=== PATIENT | female | born 1990 | race African-American/Black ===

== ENCOUNTER 2017-06-30 18:38 | Emergency (ER) | payer OTHER ==
[~2017-06-30 18:38] MED LIST: METO50TA PO
[2017-06-30 19:07] VITALS: BP 166/201; PULSE 68; RESP 16; TEMP 98.4; O2SAT 100
[2017-06-30 19:52] VITALS: BP 168/92
[2017-06-30] MEDS ORDERED: IBUP1TAB7 PO (20:42)
--- NOTE | 2017-06-30 20:44 | PD ---
HPI Chief Complaint: Musculoskeletal Complaint Time Seen by Provider: 19:44 Travel History International Travel<30 days: No Contact w/Intl Traveler<30days: No Traveled to known affect area: No History of Present Illness HPI 26-year-old female presents to the emergency department with complaint of bilateral breast pain that started today. Denies nipple discharge, breast swelling, change in skin appearance or appearance of bilateral breasts. Denies fever, vomiting. Last menstrual period May 06. Has IUD and says her periods are irregular. Denies risk of being . Has not taken any medication or tried any treatments to alleviate her symptoms. Rates pain 7/10. Pain is all over to bilateral breasts. Describes it as a burning sensation. Better with hot compresses. Worse with cold, movement and palpation of the breast. Primary CARE providers Dr. Aponte. Allergies to clindamycin. History of pacemaker and prolonged QT syndrome. Has no other medical complaints. No other modifying factors or associated signs and symptoms. PFSH Past Medical History Cardiovascular Problems: Yes (prolonged QT syndrome) Headaches: Yes ?: Not LMP: 05/06/17 : 1 Para: 0 Miscarriage: 1 Past Surgical History AICD: Yes (ki work) Section: Yes Tonsillectomy: Yes Social History Alcohol Use: Yes (SOCIALLY) Tobacco Use: No Substance Use: No Allergies-Medications (Allergen,Severity, Reaction): Coded Allergies: No Known Allergies (Unverified , 04/30/15) Reported Meds & Prescriptions Reported Meds & Active Scripts Active Ibuprofen 800 Mg Tab 800 Mg PO Q6HR PRN Reported Metoprolol Tartrate 50 mg (Metoprolol Tartrate) 50 Mg Tab 50 Mg PO BID Review of Systems Except as stated in HPI: all other systems reviewed are Neg Physical Exam Narrative GENERAL: Well-nourished, well-developed black female patient, in no acute distress; afebrile, nontoxic-appearing SKIN: Warm and dry. HEAD: Atraumatic. Normocephalic. EYES: Pupils equal and round. No scleral icterus. No injection or drainage. ENT: Mucosa pink and moist. Airway patent. NECK: Trachea midline. BREAST: Bilateral breasts are with tenderness on palpation all over; no nipple discharge; no skin dimpling; without erythema, edema; no palpable lumps or masses on palpation. No axillary lymphadenopathy bilaterally. CARDIOVASCULAR: Regular rate. RESPIRATORY: No accessory muscle use. GASTROINTESTINAL: Rounded. MUSCULOSKELETAL: No obvious deformities. No clubbing. No cyanosis. No edema. NEUROLOGICAL: Awake and alert. Oriented 3. No obvious cranial nerve deficits. Motor grossly within normal limits. Normal speech. PSYCHIATRIC: Appropriate mood and affect; insight and judgment normal. Data Data Last Documented VS Vital Signs Date Time Temp Pulse Resp B/P (MAP) Pulse Ox O2 Delivery O2 Flow Rate FiO2 06/30/17 19:52 168/92 (117) 06/30/17 19:07 98.4 68 16 100 Orders Orders Ed Urine Pregnancytest Poc (06/30/17 20:17) Ed Discharge Order (06/30/17 20:44) Ibuprofen (Motrin) (06/30/17 20:45) [facility] Medical Decision Making Medical Screen Exam Complete: Yes Emergency Medical Condition: Yes Medical Record Reviewed: Yes Differential Diagnosis Breast tenderness, painful breast, , premenses Narrative Course 26-year-old female with pain of both breasts. Physical exam is unremarkable. There are no palpable lumps, erythema, edema, nipple drainage, skin dimpling, axillary lymphadenopathy on exam. Patient is afebrile and nontoxic-appearing. She denies fever, vomiting. UPT is negative. Last menstrual period May 06. Patient states irregular periods. Ibuprofen administered in the ER. Instructed patient to follow-up with boring machine operator. Instructed patient to follow up with primary care provider. Patient verbalizes understanding and agreement with treatment plan. Patient is medically cleared and stable for discharge. Discussed reasons to return to the emergency department. Patient agrees with treatment plan. The patients vital signs are stable and the patient is stable for outpatient follow-up and treatment. Patient discharged home, stable and in no acute distress. Diagnosis Primary Impression: Pain of both breasts Referrals: Superintendent [employer] Primary Care Physician Patient Instructions: General Instructions Additional Instructions: Ibuprofen or Tylenol as directed and as needed for pain Warm and/or cold compresses to bilateral breasts to decrease pain Wear supportive bra to decrease pain Avoid aggravating activity Follow-up with primary care provider Follow-up with boring machine operator Return to the emergency department immediately with worsening of symptoms Med/Other Pt SpecificInfo: Prescription(s) given Scripts Ibuprofen (Ibuprofen) 800 Mg Tab 800 MG PO Q6HR Y for PAIN, #30 TAB 0 Refills Prov: Nadiya Bailey 06/30/17 Disposition: 01 DISCHARGE HOME Condition: Stable Nadiya Bailey Jun 30, 2017 20:44
[2017-06-30] MEDS ORDERED: IBUPROFEN 800 MG TAB PO ONE (20:45)
== END 2017-06-30 20:59 | disposition home or self-care (01) ==
LOC: NEPK 18:38
DX: N64.4 Mastodynia (principal); I45.81 Long QT syndrome; Z95.0 Presence of cardiac pacemaker
CPT/HCPCS: 84703; 99283

== ENCOUNTER 2017-07-10 12:50 | Observation (INO) | payer OTHER ==
[~2017-07-10] VITALS: Ht 157.5 cm; Wt 81.8 kg
[~2017-07-10 12:50] MED LIST changes: +IBUP1TAB7 PO
[2017-07-10 13:13] VITALS: BP 152/103; PULSE 83; RESP 16; TEMP 98.1; O2SAT 100
[2017-07-10 13:43] VITALS: BP 144/84; PULSE 78; RESP 18; TEMP 98.3; O2SAT 99
--- NOTE | 2017-07-10 14:08 | PD ---
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 Batres. Pt said her AICD fired yesterday and she went to see Dr. Batres and was interrogated and said her heart rate was in the 200s and that they may have to change her medication but they did not. Pt was told to come to the ED if it occurs again. Said AICD fired around 10:40am today. Pt feels a little lightheaded. Denies any fever, chest pain, sob, n/v, abdominal pain, focal weakness or numbness. PFSH Past Medical History Cardiovascular Problems: Yes Diminished Hearing: No Headaches: Yes Immunizations Current: Yes Tetanus Vaccination: Unknown Influenza Vaccination: No ?: Not : 2 Para: 1 Miscarriage: 1 Past Surgical History AICD: Yes ([employer]) Section: Yes Tonsillectomy: Yes Other Surgery: Yes (AICD Placement) Social History Alcohol Use: Yes (SOCIALLY) Tobacco Use: No Substance Use: No Allergies-Medications (Allergen,Severity, Reaction): Coded Allergies: clindamycin (Verified Allergy, Unknown, 07/10/17) Reported Meds & Prescriptions Reported Meds & Active Scripts Active Ibuprofen 800 Mg Tab 800 Mg PO Q6HR PRN Review of Systems Except as stated in HPI: all other systems reviewed are Neg Physical Exam Narrative GENERAL: 26yo F not in distress. SKIN: Focused skin assessment warm/dry. HEAD: Atraumatic. Normocephalic. EYES: Pupils equal and round. No scleral icterus. No injection or drainage. ENT: No nasal bleeding or discharge. Mucous membranes pink and moist. NECK: Trachea midline. No JVD. CARDIOVASCULAR: Regular rate and rhythm. No murmur appreciated. RESPIRATORY: No accessory muscle use. Clear to auscultation. Breath sounds equal bilaterally. GASTROINTESTINAL: Abdomen soft, non-tender, nondistended. MUSCULOSKELETAL: No obvious deformities. No clubbing. No cyanosis. No edema. NEUROLOGICAL: Awake and alert. No obvious cranial nerve deficits. Motor grossly within normal limits. Normal speech. PSYCHIATRIC: Appropriate mood and affect; insight and judgment normal. Data Data Last Documented VS Vital Signs Date Time Temp Pulse Resp B/P (MAP) Pulse Ox O2 Delivery O2 Flow Rate FiO2 07/10/17 13:43 98.3 78 18 144/84 (104) 99 Room Air Orders Orders Complete Blood Count With Diff (07/10/17 14:17) Basic Metabolic Panel (Bmp) (07/10/17 14:17) Magnesium (Mg) (07/10/17 14:17) Electrocardiogram (07/10/17 14:01) Admit Order (Ed Use Only) (07/10/17 18:22) Consult Cardiology (07/10/17 ) Labs Laboratory Tests Test 07/10/17 13:35 White Blood Count 7.8 TH/MM3 Red Blood Count 4.72 MIL/MM3 Hemoglobin 14.5 GM/DL Hematocrit 42.2 % Mean Corpuscular Volume 89.2 FL Mean Corpuscular Hemoglobin 30.7 PG Mean Corpuscular Hemoglobin Concent 34.4 % Red Cell Distribution Width 12.5 % Platelet Count 296 TH/MM3 Mean Platelet Volume 8.5 FL Neutrophils (%) (Auto) 61.3 % Lymphocytes (%) (Auto) 28.5 % Monocytes (%) (Auto) 7.7 % Eosinophils (%) (Auto) 1.7 % Basophils (%) (Auto) 0.8 % Neutrophils # (Auto) 4.8 TH/MM3 Lymphocytes # (Auto) 2.2 TH/MM3 Monocytes # (Auto) 0.6 TH/MM3 Eosinophils # (Auto) 0.1 TH/MM3 Basophils # (Auto) 0.1 TH/MM3 CBC Comment DIFF FINAL Differential Comment Blood Urea Nitrogen 7 MG/DL Creatinine 0.82 MG/DL Random Glucose 85 MG/DL Calcium Level 9.0 MG/DL Magnesium Level 2.2 MG/DL Sodium Level 144 MEQ/L Potassium Level 3.9 MEQ/L Chloride Level 109 MEQ/L Carbon Dioxide Level 30.5 MEQ/L Anion Gap 5 MEQ/L Estimat Glomerular Filtration Rate 104 ML/MIN [facility] Medical Decision Making Medical Screen Exam Complete: Yes Emergency Medical Condition: Yes Interpretation(s) EKG: NSR 71bpm. Normal axis. No ST segment elevation or depression. QTc 362ms. Differential Diagnosis Vtach vs. electrolyte abnormality vs. dehydration Narrative Course 26yo F was sent here by Dr. Batres for evaluation because her AICD fired again today. Pt said it fired at 10:40am yesterday and then again at 11:15am. Pt said she was evaluated by Dr. Batres's nurse practitioner in the office yesterday after the first firing and had [employer] interrogate the AICD and it was fired appropriately. This information was given to Dr. Batres and pt was instructed to come to the ED when she called and said her AICD fired again today. Pt denies any chest pain, sob currently. [employer] was called again and AICD was interrogated and they saw that there was one new episode of VF at 11:14am and a shock was delivered and it was appropriate. This information was texted to Dr. Batres. We have been trying to contact Dr. Batres but unable to reach him. Labs reviewed, no leukocytosis. H/H normal. BMP unremarkable. Magnesium normal. Since pt had 2 episodes of VF/Vtach in 2 days, will observe pt on telemetry and consult Dr. Batres. Pt denies any chest pain or sob but does fell lightheaded. Diagnosis Primary Impression: AICD discharge Admitting Information Admitting Physician Requests: Observation Scripts Sotalol (Sorine) 80 Mg Tab 120 MG PO BID for Regulate Heart Beat for 30 Days, #90 TAB Prov: Alyssa Shrestha PA-C 07/11/17 Mitzi Jasmine DO Jul 10, 2017 14:08
[2017-07-10 14:26] LABS: AUTOMATED NEUTROPHIL # 4.8 TH/MM3 (1.8-7.7); BASOPHIL # 0.1 TH/MM3 (0-0.2); BASOPHIL % 0.8 % (0.0-2.0); EOSINOPHIL # 0.1 TH/MM3 (0-0.4); EOSINOPHIL % 1.7 % (0.0-4.0); HEMATOCRIT 42.2 % (35.0-46.0); HEMOGLOBIN 14.5 GM/DL (11.6-15.3); LYMPH % 28.5 % (9.0-44.0); LYMPHOCYTE # 2.2 TH/MM3 (1.0-4.8); MEAN CELL VOLUME 89.2 FL (80.0-100.0); MEAN CORPUSCULAR HEMOGLOBIN 30.7 PG (27.0-34.0); MEAN CORPUSCULAR HGB CONC 34.4 % (32.0-36.0); MEAN PLATELET VOLUME 8.5 FL (7.0-11.0); MONO % 7.7 % (0.0-8.0); MONOCYTE # 0.6 TH/MM3 (0-0.9); NEUT % 61.3 % (16.0-70.0); PLATELET COUNT 296 TH/MM3 (150-450); RED BLOOD COUNT 4.72 MIL/MM3 (4.00-5.30); RED CELL DISTRIBUTION WIDTH 12.5 % (11.6-17.2); WHITE BLOOD COUNT 7.8 TH/MM3 (4.0-11.0)
[2017-07-10 14:44] LABS: BICARBONATE 30.5 MEQ/L (21.0-32.0); CREATININE 0.82 MG/DL (0.50-1.00); MAGNESIUM 2.2 MG/DL (1.5-2.5)
[2017-07-10] MEDS ORDERED: METO50TA PO (14:57)
[2017-07-10] MEDS ORDERED: LACTULOSE SYRUP 20 GM/30 ML CUP PO PRN (18:45)
[2017-07-10] MEDS ORDERED: MAGNESIUM HYDROXIDE SUSP 30 ML CUP PO PRN (18:45)
[2017-07-10] MEDS ORDERED: SENNOSIDES 8.6 MG TAB PO PRN (18:45)
[2017-07-10] MEDS ORDERED: NALOXONE HCL 0.4 MG/ML AMP IV PUSH PRN (18:45)
[2017-07-10] MEDS ORDERED: SODIUM CHLORIDE 0.9% FLUSH 10 ML FLUSH IV FLUSH PRN (18:45)
[2017-07-10] MEDS ORDERED: ONDANSETRON HCL 4 MG/2 ML VIAL IVP PRN (18:45)
[2017-07-10] MEDS ORDERED: BISACODYL 10 MG SUPP RECTAL PRN (18:45)
[2017-07-10 19:20] VITALS: BP 152/86; PULSE 76; RESP 14; O2SAT 99
--- NOTE | 2017-07-10 20:02 | HHI.HP ---
[facility] Gareth Ap[facility] MD Admission Diagnosis AICD firing Diagnoses: Travel History International Travel<30 Days: No Contact w/Intl Traveler <30 Da: No Traveled to Known Affected Are: No Past Family Social History Allergies: Coded Allergies: clindamycin (Verified Allergy, Unknown, 07/10/17) Physical Exam Vital Signs Vital Signs Date Time Temp Pulse Resp B/P (MAP) Pulse Ox O2 Delivery O2 Flow Rate FiO2 07/10/17 20:00 07/10/17 19:20 76 14 152/86 (108) 99 Room Air 07/10/17 19:18 76 14 99 Room Air 07/10/17 13:43 98.3 78 18 144/84 (104) 99 Room Air 07/10/17 13:43 20 99 Room Air 07/10/17 13:13 98.1 83 16 152/103 (119) 100 Physical Exam GENERAL: This is a well-nourished, well-developed patient, in no apparent distress. SKIN: No rashes, ecchymoses or lesions. Cool and dry. HEAD: Atraumatic. Normocephalic. No temporal or scalp tenderness. EYES: Pupils equal round and reactive. Extraocular motions intact. No scleral icterus. No injection or drainage. ENT: Nose without bleeding, purulent drainage or septal hematoma. Throat without erythema, tonsillar hypertrophy or exudate. Uvula midline. Airway patent. NECK: Trachea midline. No JVD or lymphadenopathy. Supple, nontender, no meningeal signs. CARDIOVASCULAR: Regular rate and rhythm without murmurs, gallops, or rubs. RESPIRATORY: Clear to auscultation. Breath sounds equal bilaterally. No wheezes , rales, or rhonchi. GASTROINTESTINAL: Abdomen soft, non-tender, nondistended. No hepato-splenomegaly , or palpable masses. No guarding. MUSCULOSKELETAL: Extremities without clubbing, cyanosis, or edema. No joint tenderness, effusion, or edema noted. No calf tenderness. Negative Homans sign bilaterally. NEUROLOGICAL: Awake and alert. Cranial nerves II through XII intact. Motor and sensory grossly within normal limits. Five out of 5 muscle strength in all muscle groups. Normal speech. Laboratory Laboratory Tests Test 07/10/17 13:35 White Blood Count 7.8 Red Blood Count 4.72 Hemoglobin 14.5 Hematocrit 42.2 Mean Corpuscular Volume 89.2 Mean Corpuscular Hemoglobin 30.7 Mean Corpuscular Hemoglobin Concent 34.4 Red Cell Distribution Width 12.5 Platelet Count 296 Mean Platelet Volume 8.5 Neutrophils (%) (Auto) 61.3 Lymphocytes (%) (Auto) 28.5 Monocytes (%) (Auto) 7.7 Eosinophils (%) (Auto) 1.7 Basophils (%) (Auto) 0.8 Neutrophils # (Auto) 4.8 Lymphocytes # (Auto) 2.2 Monocytes # (Auto) 0.6 Eosinophils # (Auto) 0.1 Basophils # (Auto) 0.1 CBC Comment DIFF FINAL Differential Comment Blood Urea Nitrogen 7 Creatinine 0.82 Random Glucose 85 Calcium Level 9.0 Magnesium Level 2.2 Sodium Level 144 Potassium Level 3.9 Chloride Level 109 Carbon Dioxide Level 30.5 Anion Gap 5 Estimat Glomerular Filtration Rate 104 Result Diagram: 07/10/17 1335 07/10/17 1335 Caprini VTE Risk Assessment Caprini Risk Assessment Model Point Value = 1 Point Value = 2 Point Value = 3 Point Value = 5 Age 41-60 Minor surgery BMI > 25 kg/m2 Swollen legs Varicose veins or History of unexplained or recurrent spontaneous Oral contraceptives or hormone replacement Sepsis (< 1 month) Serious lung disease, including pneumonia (< 1 month) Abnormal pulmonary function Acute myocardial infarction Congestive heart failure (< 1 month) History of inflammatory bowel disease Medical patient at bed rest Age 61-74 Arthroscopic surgery Major open surgery (> 45 min) Laparoscopic surgery (> 45 min) Malignancy Confined to bed (> 72 hours) Immobilizing plaster cast Central venous access Age >= 75 History of VTE Family history of VTE Factor V Leiden Prothrombin [id number] Lupus anticoagulant Anticardiolipin antibodies Elevated serum homocysteine Heparin-induced thrombocytopenia Other congenital or acquired thrombophilia Stroke (< 1 month) Elective arthroplasty Hip, pelvis, or leg fracture Acute spinal cord injury (< 1 month) Prophylaxis Regimen Total Risk Factor Score Risk Level Prophylaxis Regimen 0-1 Low Early ambulation 2 Moderate Order ONE of the following: *Sequential Compression Device (SCD) *Heparin 5000 units SQ BID 3-4 Higher Order ONE of the following medications: *Heparin 5000 units SQ TID *Enoxaparin/Lovenox 40 mg SQ daily (WT < 150 kg, CrCl > 30 mL/min) *Enoxaparin/Lovenox 30 mg SQ daily (WT < 150 kg, CrCl > 10-29 mL/min) *Enoxaparin/Lovenox 30 mg SQ BID (WT < 150 kg, CrCl > 30 mL/min) AND/OR *Sequential Compression Device (SCD) 5 or more Highest Order ONE of the following medications: *Heparin 5000 units SQ TID (Preferred with Epidurals) *Enoxaparin/Lovenox 40 mg SQ daily (WT < 150 kg, CrCl > 30 mL/min) *Enoxaparin/Lovenox 30 mg SQ daily (WT < 150 kg, CrCl > 10-29 mL/min) *Enoxaparin/Lovenox 30 mg SQ BID (WT < 150 kg, CrCl > 30 mL/min) AND *Sequential Compression Device (SCD) Cristel Sharma MD Jul 10, 2017 20:02
[2017-07-10] MEDS: DOCUSATE SODIUM 50 MG/SENNA 8.6 MG TAB PO SCH (21:00)
[2017-07-10] MEDS: METOPROLOL TARTRATE 50 MG TAB PO SCH (23:00)
--- NOTE | 2017-07-10 23:35 | HHI.HP ---
[facility] Ap[facility] MD Admission Diagnosis AICD firing Diagnoses: (1) AICD discharge Chief Complaint: AICD fired yesterday and this morning Travel History International Travel<30 Days: No Contact w/Intl Traveler <30 Da: No Traveled to Known Affected Are: No History of Present Illness Ms. Sanford is a very pleasant 27-year-old female with a history of prolonged QT syndrome status post AICD placement who presented to the emergency room after her AICD fired twice. The patient was admitted to the hospitalist service for observation given two episodes of ventricular arrhythmia in two days to include close monitoring and consultation with Dr. Stein. The patient's AICD fired 07/09/2017 and the patient was seen by her provider network mgr Dr. Stein. The AICD was interrogated and found to be working appropriately. She was instructed to come to the emergency room after the AICD fired again at about 10:40 AM on 07/10/2017. The patient states that she was asleep during both discharges and woke up feeling palpitations and felt the discharge of the AICD. She denies any chest pain shortness of breath. She indicates she was feeling lightheaded in the emergency room but told me that those symptoms spontaneously resolved after she ate. She denies any recent illness, fevers, chills, nausea, vomiting, or diarrhea. According to the ER documentation, the AICD was again interrogated and V. fib was noted at 11:14 AM with appropriate shock delivered. 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 Past Surgical History AICD placement February 26, 2015 Partial tonsillectomy . Reported Medications Reported Metoprolol Tartrate 50 Mg Tab 50 Mg PO BID . Allergies: Coded Allergies: clindamycin (Verified Allergy, Unknown, 07/10/17) Family History Mother and maternal grandfather with prolonged QT syndrome . Social History Tobacco: Denies Alcohol: Rare social Illicit Drugs: Denies . Physical Exam Vital Signs Vital Signs Date Time Temp Pulse Resp B/P (MAP) Pulse Ox O2 Delivery O2 Flow Rate FiO2 07/10/17 20:00 07/10/17 19:20 76 14 152/86 (108) 99 Room Air 07/10/17 19:18 76 14 99 Room Air 07/10/17 13:43 98.3 78 18 144/84 (104) 99 Room Air 07/10/17 13:43 20 99 Room Air 07/10/17 13:13 98.1 83 16 152/103 (119) 100 Physical Exam CONSTITUTIONAL: This is an overweight young female patient, in no apparent distress. Well groomed. INTEGUMENTARY: No rashes, ecchymoses or lesions. Cool and dry. HEAD: Atraumatic. Normocephalic. EYES: No scleral icterus. No injection or drainage. ENT: Nose without bleeding, purulent drainage. NECK: Trachea midline. No JVD. CARDIOVASCULAR: Regular rate and rhythm without murmurs, gallops, or rubs. RESPIRATORY: Clear to auscultation. Breath sounds equal bilaterally. No wheezes , rales, or rhonchi. GASTROINTESTINAL: Abdomen soft, non-tender, nondistended. No guarding. MUSCULOSKELETAL: Extremities without clubbing, cyanosis, or edema. No calf tenderness. NEUROLOGICAL: Awake and alert. Motor and sensory grossly within normal limits. Normal speech. . Laboratory Laboratory Tests Test 07/10/17 13:35 White Blood Count 7.8 Red Blood Count 4.72 Hemoglobin 14.5 Hematocrit 42.2 Mean Corpuscular Volume 89.2 Mean Corpuscular Hemoglobin 30.7 Mean Corpuscular Hemoglobin Concent 34.4 Red Cell Distribution Width 12.5 Platelet Count 296 Mean Platelet Volume 8.5 Neutrophils (%) (Auto) 61.3 Lymphocytes (%) (Auto) 28.5 Monocytes (%) (Auto) 7.7 Eosinophils (%) (Auto) 1.7 Basophils (%) (Auto) 0.8 Neutrophils # (Auto) 4.8 Lymphocytes # (Auto) 2.2 Monocytes # (Auto) 0.6 Eosinophils # (Auto) 0.1 Basophils # (Auto) 0.1 CBC Comment DIFF FINAL Differential Comment Blood Urea Nitrogen 7 Creatinine 0.82 Random Glucose 85 Calcium Level 9.0 Magnesium Level 2.2 Sodium Level 144 Potassium Level 3.9 Chloride Level 109 Carbon Dioxide Level 30.5 Anion Gap 5 Estimat Glomerular Filtration Rate 104 Result Diagram: 07/10/17 1335 07/10/17 1335 Caprini VTE Risk Assessment Caprini VTE Risk Assessment: No/Low Risk (score <= 1) Caprini Risk Assessment Model Point Value = 1 Point Value = 2 Point Value = 3 Point Value = 5 Age 41-60 Minor surgery BMI > 25 kg/m2 Swollen legs Varicose veins or History of unexplained or recurrent spontaneous Oral contraceptives or hormone replacement Sepsis (< 1 month) Serious lung disease, including pneumonia (< 1 month) Abnormal pulmonary function Acute myocardial infarction Congestive heart failure (< 1 month) History of inflammatory bowel disease Medical patient at bed rest Age 61-74 Arthroscopic surgery Major open surgery (> 45 min) Laparoscopic surgery (> 45 min) Malignancy Confined to bed (> 72 hours) Immobilizing plaster cast Central venous access Age >= 75 History of VTE Family history of VTE Factor V Leiden Prothrombin [id number] Lupus anticoagulant Anticardiolipin antibodies Elevated serum homocysteine Heparin-induced thrombocytopenia Other congenital or acquired thrombophilia Stroke (< 1 month) Elective arthroplasty Hip, pelvis, or leg fracture Acute spinal cord injury (< 1 month) Prophylaxis Regimen Total Risk Factor Score Risk Level Prophylaxis Regimen 0-1 Low Early ambulation 2 Moderate Order ONE of the following: *Sequential Compression Device (SCD) *Heparin 5000 units SQ BID 3-4 Higher Order ONE of the following medications: *Heparin 5000 units SQ TID *Enoxaparin/Lovenox 40 mg SQ daily (WT < 150 kg, CrCl > 30 mL/min) *Enoxaparin/Lovenox 30 mg SQ daily (WT < 150 kg, CrCl > 10-29 mL/min) *Enoxaparin/Lovenox 30 mg SQ BID (WT < 150 kg, CrCl > 30 mL/min) AND/OR *Sequential Compression Device (SCD) 5 or more Highest Order ONE of the following medications: *Heparin 5000 units SQ TID (Preferred with Epidurals) *Enoxaparin/Lovenox 40 mg SQ daily (WT < 150 kg, CrCl > 30 mL/min) *Enoxaparin/Lovenox 30 mg SQ daily (WT < 150 kg, CrCl > 10-29 mL/min) *Enoxaparin/Lovenox 30 mg SQ BID (WT < 150 kg, CrCl > 30 mL/min) AND *Sequential Compression Device (SCD) Assessment and Plan Assessment and Plan Ms. Sanford is a very pleasant 27-year-old female with a history of prolonged QT syndrome status post AICD placement who presented to the emergency room after her AICD fired twice. The patient was admitted to the hospitalist service for observation given two episodes of ventricular arrhythmia in two days to include close monitoring and consultation with Dr. Stein. AICD discharge x 2 Prolonged QT syndrome -Consult provider network mgr, Dr. Stein - appreciate assistance -Continue home Metoprolol -Continuous cardiac telemetry to monitor for further arrhythmia -Monitor vital signs and I&Os DVT prophylaxis -Early ambulation . Discussed Condition With Patient, RN, and Dr. Sharma . Chandrika Bang Jul 10, 2017 23:35
[2017-07-10 23:37] VITALS: BP 138/76; PULSE 65; RESP 18; TEMP 98.1; O2SAT 96
[2017-07-11] MEDS: SODIUM CHLORIDE 0.9% FLUSH 10 ML FLUSH IV FLUSH SCH ×2 (01:23→08:31)
[2017-07-11] MEDS ORDERED: PROCHLORPERAZINE INJ 10 MG/2 ML VIAL IV PUSH PRN (01:30)
[2017-07-11 04:56] VITALS: BP 126/75; PULSE 81; RESP 20; TEMP 97.4; O2SAT 99
[2017-07-11] MEDS ORDERED: CALCIUM CARBONATE 500 MG CHEWABLE TAB CHEW PRN (05:00)
[2017-07-11 07:37] VITALS: BP 136/80; PULSE 84; RESP 16; TEMP 97.4; O2SAT 96
[2017-07-11 08:05] VITALS: PULSE 60
[2017-07-11] MEDS: METOPROLOL TARTRATE 50 MG TAB PO SCH (08:31)
[2017-07-11] MEDS: DOCUSATE SODIUM 50 MG/SENNA 8.6 MG TAB PO SCH (08:31)
--- NOTE | 2017-07-11 09:52 | HHI.PR ---
Subjective Remarks in no acute distress. resting comfortably. no new complaints over night. Objective Vitals Vital Signs Date Time Temp Pulse Resp B/P (MAP) Pulse Ox O2 Delivery O2 Flow Rate FiO2 07/11/17 07:37 97.4 84 16 136/80 (98) 96 07/11/17 04:56 97.4 81 20 126/75 (92) 99 07/10/17 23:37 98.1 65 18 138/76 (96) 96 07/10/17 20:00 07/10/17 19:20 76 14 152/86 (108) 99 Room Air 07/10/17 19:18 76 14 99 Room Air 07/10/17 13:43 98.3 78 18 144/84 (104) 99 Room Air 07/10/17 13:43 20 99 Room Air 07/10/17 13:13 98.1 83 16 152/103 (119) 100 Result Diagram: 07/10/17 1335 07/10/17 1335 Objective Remarks GENERAL: This is a well-nourished, well-developed patient, in no apparent distress. CARDIOVASCULAR: Regular rate and regular rhythm without murmurs, gallops, or rubs. RESPIRATORY: Clear to auscultation. Breath sounds equal bilaterally. No wheezes , rales, or rhonchi. GASTROINTESTINAL: Abdomen soft, non-tender, nondistended. Normal, active bowel sounds MUSCULOSKELETAL: Extremities without clubbing, cyanosis, or edema. NEURO: Alert & Oriented x4 to person, place, time, situation. Moves all ext x4 Medications and IVs Inpatient Medications Bisacodyl (Dulcolax Supp) 10 mg DAILY PRN RECTAL SEVERE CONSITIPATION; Start at 18:45 Calcium Carbonate (Tums Chew) 500 mg Q2H PRN CHEW indigestion Last administered on 07/11/17at 08:32; Start 07/11/17 at 05:00 Lactulose (Lactulose Liq) 30 ml DAILY PRN PO SEVERE CONSTIPATION; Start at 18:45 Magnesium Hydroxide (Milk Of Magnesia Liq) 30 ml Q12H PRN PO Mild constipation ; Start 07/10/17 at 18:45 Metoprolol Tartrate (Lopressor) 50 mg BID PO Last administered on 07/11/17at 08: 31; Start 07/10/17 at 23:00 Naloxone HCl (Narcan Inj) 0.4 mg UNSCH PRN IV PUSH SEE LABEL COMMENTS; Start at 18:45 Ondansetron HCl (Zofran Inj) 4 mg Q6H PRN IVP NAUSEA OR VOMITING; Start at 18:45; Stop 07/11/17 at 01:29; Status DC Prochlorperazine Edisylate (Compazine Inj) 5 mg Q3H PRN IV PUSH nausea/vomiting ; Start 07/11/17 at 01:30 Senna/Docusate Sodium (Mirela-Colace) 1 tab BID PO ; Start 07/10/17 at 21:00 Sennosides (Senokot) 17.2 mg Q12H PRN PO Moderate constipation; Start 07/10/17 at 18:45 Sodium Chloride (NS Flush) 2 ml BID IV FLUSH Last administered on 07/11/17at 08: 31; Start 07/10/17 at 21:00 A/P Problem List: (1) AICD discharge ICD Code: Z45.02 - Encounter for adjustment and management of automatic implantable cardiac defibrillator Assessment and Plan AICD discharge x 2 Prolonged QT syndrome -Consulted facilities project manager, Dr. Stein - appreciate assistance -Continue home Metoprolol -Continuous cardiac telemetry to monitor for further arrhythmia -Monitor vital signs and I&Os DVT prophylaxis -Early ambulation Discharge Planning awaiting cardiology evaluation. Tony Murrell MD Jul 11, 2017 09:52
[2017-07-11 12:00] VITALS: BP 136/76; PULSE 60; RESP 16; TEMP 98; O2SAT 99
--- NOTE | 2017-07-11 14:26 | HHI.DCPOC ---
Discharge Care Plan Diagnosis: (1) AICD discharge Goals to Promote Your Health * To prevent worsening of your condition and complications * To maintain your health at the optimal level Directions to Meet Your Goals Take your medications as prescribed Follow your dietary instruction Follow activity as directed Keep your appointments as scheduled Take your immunizations and boosters as scheduled If your symptoms worsen call your PCP, if no PCP go to Urgent Care Center or Emergency Room Smoking is Dangerous to Your Health. Avoid second hand smoke Call the 24-hour hour crisis hotline for domestic abuse at Alyssa Shrestha PA-C Jul 11, 2017 14:26
[2017-07-11 15:15] VITALS: PULSE 71
[2017-07-11] MEDS ORDERED: IBUPROFEN 600 MG TAB PO PRN (15:45)
[2017-07-11] MEDS ORDERED: ACETAMINOPHEN 325 MG TAB PO PRN (15:45)
[2017-07-11] MEDS ORDERED: PILL SPLITTER OTHER PRN (16:00)
--- NOTE | 2017-07-11 16:01 | MB ---
cc: Chayo Stein MD DATE: 07/11/2017 REASON FOR CONSULTATION: Ventricular tachycardia defibrillatory shock of ventricular fibrillation. HISTORY OF PRESENT ILLNESS: Ms. Sanford is a 27-year-old female with history of previous defibrillatory shock, cardiomyopathy. She was doing well since last June. She has a defibrillatory shock. This is a third shock in around a year. She was admitted to the emergency room. She has a long QT syndrome. She is currently on a beta kadie. The chart was reviewed. The patient was evaluated. ALLERGIES: CLINDAMYCIN. SOCIAL HISTORY: Negative for smoking and drinking. FAMILY HISTORY: Noncontributory to her current medical condition. MEDICATIONS: Currently she is on metoprolol 50 mg twice a day and magnesium. REVIEW OF SYSTEMS: Currently, she referred no chest pain, no chest discomfort, no fever, no vomiting. PHYSICAL EXAMINATION: GENERAL: Alert, fully oriented. VITAL SIGNS: Blood pressure 132/76, pulse 71, respiratory rate 18. LUNGS: Good air entry bilaterally. CARDIOVASCULAR: S1, S2. No gallop. No murmur. ABDOMEN: Soft. Normal bowel sounds. EXTREMITIES: No edema. DIAGNOSTIC STUDIES: Electrocardiogram shows sinus rhythm, diffuse ST changes. LABORATORY STUDIES: Hemoglobin 14.5, white blood cell 7.8. Potassium 3.9, creatinine 0.82, magnesium is 2.2. ASSESSMENT AND RECOMMENDATIONS: Ms. Sanford had a noted episode of ventricular fibrillation and defibrillatory shock was appropriate. This is not ventricular tachycardia. We cannot attain ablation. Also, there is no bradycardia induced torsades that happens some time in case of long QT syndrome. The heart rate was normal before the defibrillatory shock. She has continued to be in the 60s. There is no need to keep the atrial lead with very high by pacing support. I am going to review in detail the previous shocks. She is already on beta kadie. At this point, the best approach is just metoprolol add sotalol at 120 mg twice a day. I will see the patient in a week in my office. She can be discharged home. Case discussed with her extensively. As mentioned before, she will be followed as an outpatient. Chayo Stein MD HS/KD , 03:42 PM , 04:01 PM
[2017-07-11 16:05] VITALS: BP 120/65; PULSE 62; RESP 18; TEMP 98.2; O2SAT 98
[2017-07-11] MEDS ORDERED: SOTA80 PO (17:41)
--- NOTE | 2017-07-11 18:11 | EKG ---
Date Performed: 07/10/2017 Time Performed: 14:01:38 PTAGE: 26 years EKG: Sinus rhythm INCOMPLETE RIGHT BUNDLE BRANCH BLOCK NONSPECIFIC T-WAVE ABNORMALITY Compared to previous tracing, Ri ght axis deviation new from the prior tracing. Mildly prolonged QT interval, which appears old BORDER LINE ECG PREVIOUS TRACING : 04/30/2015 20.06 DOCTOR: Nikolay Sheppard Interpretating Date/Time 07/11/2017 18:11:10
[2017-07-11] MEDS ORDERED: SOTALOL HCL 80 MG TAB PO SCH (21:00)
== END 2017-07-11 20:11 | disposition home or self-care (01) ==
LOC: NEPE 12:50 → NEDA 18:24 → NEPHCDU 20:09
PROVIDERS: ADMIT Internal Medicine; ATTEND Internal Medicine
DX: I49.01 Ventricular fibrillation (principal); I42.9 Cardiomyopathy, unspecified; I45.10 Unspecified right bundle-branch block; Z95.810 Presence of automatic (implantable) cardiac defibrillator
CPT/HCPCS: 80048; 83735; 85025; 93005; 99285; G0378

== ENCOUNTER 2017-08-08 12:41 | Emergency (ER) | payer OTHER ==
[~2017-08-08 12:41] MED LIST changes: -METO50TA PO; +SOTA80 PO
[2017-08-08 12:48] VITALS: BP 142/77; PULSE 79; RESP 16; TEMP 98.6; O2SAT 99
--- NOTE | 2017-08-08 14:20 | PD ---
HPI . Neck and back pain Chief Complaint: Back/ Neck Pain or Injury Time Seen by Provider: 13:09 Travel History International Travel<30 days: No Contact w/Intl Traveler<30days: No Traveled to known affect area: No History of Present Illness HPI Patient presents with chief complaint of neck and low back pain. Onset was a year ago. There is nothing new and different that brought her to the emergency department today. History Past Medical Histgory Hx Cancer: No Hx Chemotherapy: No Hx Radiation Therapy: No Social History Alcohol Use: Yes (SOCIALLY) Tobacco Use: No Allergies-Medications (Allergen,Severity, Reaction): Coded Allergies: clindamycin (Verified Allergy, Unknown, 07/10/17) Reported Meds & Prescriptions Reported Meds & Active Scripts Active Sorine (Sotalol HCl) 80 Mg Tab 120 Mg PO BID 30 Days Ibuprofen 800 Mg Tab 800 Mg PO Q6HR PRN Review of Systems Except as stated in HPI: all other systems reviewed are Neg Physical Exam Narrative GENERAL: Awake and alert and in no acute distress. SKIN: Warm and dry. HEAD: Normocephalic/atraumatic. EYES: Pupils are equal. Extraocular movements are intact. NECK: Normal range of motion. CARDIOVASCULAR: Regular rate and rhythm. RESPIRATORY: Nonlabored respirations. MUSCULOSKELETAL: Atraumatic. She moves and ambulates without difficulty. She reports diffuse tenderness to palpation of the musculature of her neck and back. NEUROLOGICAL: Nonfocal. PSYCHIATRIC: Appropriate mood and affect. Data Data Last Documented VS Vital Signs Date Time Temp Pulse Resp B/P (MAP) Pulse Ox O2 Delivery O2 Flow Rate FiO2 08/08/17 12:48 98.6 79 16 142/77 (98) 99 MDM Medical Screen Exam Complete: Yes Emergency Medical Condition: No Narrative Course A medical screening exam was performed: At the time of evaluation the presenting medical condition was determined not to be of an emergent nature. The patient was given the option of receiving additional care, but declined. Patient was given options for additional community resources from which to obtain care. The Patient Has Been advised to seek medical attention for their presenting complaint. The patient has been advised to return to the ER at any time if an emergent condition develops. Primary Impression: Encounter for medical screening examination Disposition: [facility]-ED USE ONLY Condition: Stable Vickie Barrera MD August 08, 2017 14:20
== END 2017-08-08 13:29 | disposition left against medical advice (07) ==
LOC: NEPD 12:41
DX: M54.5 Low back pain (principal); M54.2 Cervicalgia
CPT/HCPCS: 99281

== ENCOUNTER 2017-08-20 10:38 | Inpatient (IN) | payer OTHER ==
[~2017-08-20] VITALS: Ht 157.5 cm; Wt 82.5 kg
[2017-08-20 10:42] VITALS: BP 147/87; PULSE 86; RESP 16; TEMP 98.4; O2SAT 98
[2017-08-20 11:30] VITALS: BP 165/97; PULSE 106; RESP 19; O2SAT 99
--- NOTE | 2017-08-20 11:36 | RADRPT ---
EXAM DATE: 08/20/2017 11:32 AM EDT AGE/SEX: 27 years / Female INDICATIONS: Chest pain. Pacemaker discharged. CLINICAL DATA: This is the patient's initial encounter. Patient reports that signs and symptoms have been present for 1 day and indicates a pain score of 4/10. MEDICAL/SURGICAL HISTORY: . Cardiac disorder. Prolong QT syndrome. section. [place] r. COMPARISON: No prior [facility] exams available for comparison. FINDINGS: There is a transvenous pacer in good position. The heart is normal in size. The mediastinal contours are within normal limits. The lungs are clear. The visualized bony structures are grossly intact. CONCLUSION: Pacer in satisfactory position. No acute cardiopulmonary findings. Electronically signed by: Kristian Bhatt MD 08/20/2017 11:35 AM EDT
[2017-08-20 12:15] VITALS: PULSE 65; RESP 16; O2SAT 100
[2017-08-20 12:18] LABS: AUTOMATED NEUTROPHIL # 7.8 TH/MM3 (1.8-7.7); BASOPHIL % 0.3 % (0.0-2.0); EOSINOPHIL # 0.1 TH/MM3 (0-0.4); HEMATOCRIT 44.9 % (35.0-46.0); HEMOGLOBIN 15.4 GM/DL (11.6-15.3); LYMPH % 18.4 % (9.0-44.0); LYMPHOCYTE # 1.9 TH/MM3 (1.0-4.8); MEAN CELL VOLUME 88.9 FL (80.0-100.0); MEAN CORPUSCULAR HEMOGLOBIN 30.4 PG (27.0-34.0); MEAN CORPUSCULAR HGB CONC 34.2 % (32.0-36.0); MEAN PLATELET VOLUME 8.6 FL (7.0-11.0); MONO % 5.1 % (0.0-8.0); MONOCYTE # 0.5 TH/MM3 (0-0.9); NEUT % 75.2 % (16.0-70.0); PLATELET COUNT 275 TH/MM3 (150-450); RED BLOOD COUNT 5.05 MIL/MM3 (4.00-5.30); RED CELL DISTRIBUTION WIDTH 12.6 % (11.6-17.2); WHITE BLOOD COUNT 10.4 TH/MM3 (4.0-11.0)
--- NOTE | 2017-08-20 12:21 | PD ---
HPI Chief Complaint: Cardiac Complaint Time Seen by Provider: 12:00 Travel History International Travel<30 days: No Contact w/Intl Traveler<30days: No Traveled to known affect area: No History of Present Illness HPI This is a 27-year-old female with a history of prolonged QT syndrome with a AICD in place, who presents today after having her AICD fire this morning while sleeping. Patient states that she woke up the palpitations and shortly thereafter her AICD discharge. She states it happened recently about a week ago. At that time her packing clerk, Dr. Blair, recommended that they schedule an ablation. The ablation has not been completed as of yet. She states she tried to call her packing clerk's office however he was not available. She was instructed to come here for evaluation. Denies any fevers, chills. She denies any nausea vomiting diarrhea. There is nothing new going on at this time. She does state that she got slightly lightheaded while in the x-ray getting her chest x-ray performed. She is asymptomatic now at this time. PFSH Past Medical History Asthma: No Blood Disorders: No Heart Rhythm Problems: Yes (PROLONGED QT SYNDROME) Cancer: No Cardiovascular Problems: Yes High Cholesterol: No Chemotherapy: No Chest Pain: No Congestive Heart Failure: No COPD: No Diabetes: No Diminished Hearing: No Endocrine: No Genitourinary: No Headaches: Yes Immune Disorder: No Implanted Vascular Access Dvce: Yes Musculoskeletal: No Neurologic: No Psychiatric: No Reproductive: No Respiratory: No Immunizations Current: Yes Radiation Therapy: No Sleep Apnea: No Thyroid Disease: No : 2 Para: 1 Miscarriage: 1 Past Surgical History AICD: Yes ([employer]) Section: Yes Tonsillectomy: Yes Other Surgery: Yes (AICD PLACEMENT , ) Social History Alcohol Use: Yes (SOCIALLY) Tobacco Use: No Substance Use: No Allergies-Medications (Allergen,Severity, Reaction): Coded Allergies: clindamycin (Verified Allergy, Unknown, 08/20/17) Reported Meds & Prescriptions Reported Meds & Active Scripts Active Sorine (Sotalol HCl) 80 Mg Tab 120 Mg PO BID 30 Days Ibuprofen 800 Mg Tab 800 Mg PO Q6HR PRN Review of Systems Except as stated in HPI: all other systems reviewed are Neg General / Constitutional: No: Fever, Chills HENT: No: Headaches, Neck Pain Cardiovascular: Positive: Palpitations, No: Chest Pain or Discomfort, Irregular Rhythm (Earlier) Respiratory: No: Cough, Shortness of Breath Gastrointestinal: No: Nausea, Vomiting, Abdominal Pain Genitourinary: No: Frequency, Dysuria Musculoskeletal: No: Weakness, Pain Neurologic: Positive: Dizziness (Lightheaded when), No: Weakness, Headache ( in x-ray, none now.) Physical Exam Narrative GENERAL: Well-developed well-nourished female in no acute respiratory distress. SKIN: Focused skin assessment warm/dry. HEAD: Atraumatic. Normocephalic. EYES: Pupils equal and round. No scleral icterus. No injection or drainage. ENT: No nasal bleeding or discharge. Mucous membranes pink and moist. NECK: Trachea midline. Supple. CARDIOVASCULAR: Regular rate and rhythm. No murmur appreciated. RESPIRATORY: No accessory muscle use. Clear to auscultation. Breath sounds equal bilaterally. GASTROINTESTINAL: Abdomen soft, non-tender, nondistended. Hepatic and splenic margins not palpable. MUSCULOSKELETAL: No obvious deformities. No clubbing. No cyanosis. No edema. NEUROLOGICAL: Awake and alert. No obvious cranial nerve deficits. Motor grossly within normal limits. Normal speech. PSYCHIATRIC: Appropriate mood and affect; insight and judgment normal. Data Data Last Documented VS Vital Signs Date Time Temp Pulse Resp B/P (MAP) Pulse Ox O2 Delivery O2 Flow Rate FiO2 08/20/17 12:15 100 Room Air 08/20/17 12:15 65 16 08/20/17 10:42 98.4 Orders Orders Electrocardiogram (08/20/17 ) Complete Blood Count With Diff (08/20/17 11:10) Basic Metabolic Panel (Bmp) (08/20/17 11:10) Ckmb (Isoenzyme) Profile (08/20/17 11:10) Troponin I (08/20/17 11:10) Iv Access Insert/Monitor (08/20/17 11:10) Ecg Monitoring (08/20/17 11:10) Oxygen Administration (08/20/17 11:10) Oximetry (08/20/17 11:10) Prothrombin Time / Inr (Pt) (08/20/17 11:10) Chest, Pa & Lat (08/20/17 11:10) Labs Laboratory Tests Test 08/20/17 11:43 White Blood Count 10.4 TH/MM3 Red Blood Count 5.05 MIL/MM3 Hemoglobin 15.4 GM/DL Hematocrit 44.9 % Mean Corpuscular Volume 88.9 FL Mean Corpuscular Hemoglobin 30.4 PG Mean Corpuscular Hemoglobin Concent 34.2 % Red Cell Distribution Width 12.6 % Platelet Count 275 TH/MM3 Mean Platelet Volume 8.6 FL Neutrophils (%) (Auto) 75.2 % Lymphocytes (%) (Auto) 18.4 % Monocytes (%) (Auto) 5.1 % Eosinophils (%) (Auto) 1.0 % Basophils (%) (Auto) 0.3 % Neutrophils # (Auto) 7.8 TH/MM3 Lymphocytes # (Auto) 1.9 TH/MM3 Monocytes # (Auto) 0.5 TH/MM3 Eosinophils # (Auto) 0.1 TH/MM3 Basophils # (Auto) 0.0 TH/MM3 CBC Comment DIFF FINAL Differential Comment MDM Medical Decision Making Medical Screen Exam Complete: Yes Emergency Medical Condition: Yes Differential Diagnosis Ventricular tachycardia versus SVT versus metabolic derangement. Edmund Cordero MD August 20, 2017 12:21
[2017-08-20 12:26] LABS: PROTHROMBIN TIME - PATIENT 10.1 SEC (9.8-11.6)
[2017-08-20 12:34] LABS: BICARBONATE 28.4 MEQ/L (21.0-32.0); BLOOD UREA NITROGEN 10 MG/DL (7-18); CALCIUM 9.5 MG/DL (8.5-10.1); CHLORIDE 103 MEQ/L (98-107); CREATININE 0.85 MG/DL (0.50-1.00); GLOMERULAR FILTRATION RATE 99 ML/MIN (>89); GLUCOSE,RANDOM 100 MG/DL (74-106); SODIUM (NA) 141 MEQ/L (136-145)
[2017-08-20 12:37] LABS: TROPONIN I LESS THAN 0.02 NG/ML (0.02-0.05)
--- NOTE | 2017-08-20 15:11 | EKG ---
Date Performed: 08/20/2017 Time Performed: 10:48:48 PTAGE: 27 years EKG: Sinus rhythm NONSPECIFIC T-WAVE ABNORMALITY BORDERLINE ECG INTERPRETATION BASED ON A DEFAULT AGE OF 40 YEARS Sinc e the PREVIOUS TRACING , no significant change noted PREVIOUS TRACIN07/10/2017 14.01.38 DOCTOR: Robert Anton Interpretating Date/Time 08/20/2017 15:10:42
[2017-08-20 16:32] VITALS: BP 148/93; PULSE 75; RESP 16; O2SAT 100
--- NOTE | 2017-08-20 18:10 | HHI.HP ---
[facility] Gareth Aponte MD Admission Diagnosis ventricular fibrillation with aicd firing, hx of QT prolongation syn Diagnoses: (1) AICD discharge Diagnosis: Principal Chief Complaint: Defibrillator shock Travel History International Travel<30 Days: No Contact w/Intl Traveler <30 Da: No Traveled to Known Affected Are: No History of Present Illness Written by Erick Sargent, acting as scribe for Dr. Murrell on 08/20/17 at 18:10. 27-year-old female with past medical history of obstructive sleep apnea prolonged QT syndrome with AICD placement in 2014 followed by who presents to the ER after her AICD fired this morning while she was sleeping. Patient reports that she felt her heart racing and subsequently her AICD firing. She reports that the last time her AICD fired was on 02 August and also occurred the day before that, and the day before that. Patient with more frequent episodes of AICD discharge, states that she was planned for cardiac ablation by Dr. Stein the 26 of July. Patient with no complaints of chest pain , shortness of breath, dizziness or lightheadedness. She does report that earlier today when technicians were and to obtain x-rays she became somewhat pale and diaphoretic and states that this has not happened previously. She voices no acute concerns at this moment. Review of Systems Except as stated in HPI: all other systems reviewed are Neg Past Family Social History Past Medical History Prolonged QT syndrome Obstructive sleep apnea Past Surgical History AICD placement 2014 Tonsillectomy Reported Medications Reported Meds & Active Scripts Active Sorine (Sotalol HCl) 80 Mg Tab 120 Mg PO BID 30 Days Ibuprofen 800 Mg Tab 800 Mg PO Q6HR PRN Allergies: Coded Allergies: clindamycin (Verified Allergy, Unknown, 08/20/17) Family History Denies any past cardiac family history. Social History Denies any tobacco, alcohol, or illicit drug use. Physical Exam Vital Signs Vital Signs Date Time Temp Pulse Resp B/P (MAP) Pulse Ox O2 Delivery O2 Flow Rate FiO2 08/20/17 16:32 75 16 148/93 (111) 100 Room Air 08/20/17 12:15 100 Room Air 08/20/17 12:15 65 16 100 Room Air 08/20/17 12:01 99 Room Air 08/20/17 11:30 106 19 165/97 (119) 99 Room Air 08/20/17 10:42 98.4 86 16 147/87 (107) 98 Physical Exam GENERAL: This is a well-nourished, well-developed patient, in no apparent distress. SKIN: No rashes, ecchymoses or lesions. Cool and dry. HEAD: Atraumatic. Normocephalic. EYES: Pupils equal round and reactive. Extraocular motions intact. No scleral icterus. No injection or drainage. ENT: Nose without bleeding, purulent drainage. Throat without erythema. Uvula midline. Airway patent. NECK: Trachea midline. No JVD. Supple, nontender, no meningeal signs. CARDIOVASCULAR: Regular rate and rhythm without murmurs, gallops, or rubs. RESPIRATORY: Clear to auscultation. Breath sounds equal bilaterally. No wheezes , rales, or rhonchi. GASTROINTESTINAL: Abdomen soft, non-tender, nondistended. No hepato-splenomegaly , or palpable masses. No guarding. MUSCULOSKELETAL: Extremities without clubbing, cyanosis, or edema. No joint tenderness, effusion, or edema noted. No calf tenderness. NEUROLOGICAL: Awake and alert, oriented x3. Cranial nerves II through XII intact. Motor and sensory grossly within normal limits. Five out of 5 muscle strength in all muscle groups. Normal speech. Laboratory Laboratory Tests Test 08/20/17 11:43 White Blood Count 10.4 Red Blood Count 5.05 Hemoglobin 15.4 Hematocrit 44.9 Mean Corpuscular Volume 88.9 Mean Corpuscular Hemoglobin 30.4 Mean Corpuscular Hemoglobin Concent 34.2 Red Cell Distribution Width 12.6 Platelet Count 275 Mean Platelet Volume 8.6 Neutrophils (%) (Auto) 75.2 Lymphocytes (%) (Auto) 18.4 Monocytes (%) (Auto) 5.1 Eosinophils (%) (Auto) 1.0 Basophils (%) (Auto) 0.3 Neutrophils # (Auto) 7.8 Lymphocytes # (Auto) 1.9 Monocytes # (Auto) 0.5 Eosinophils # (Auto) 0.1 Basophils # (Auto) 0.0 CBC Comment DIFF FINAL Differential Comment Prothrombin Time 10.1 Prothromb Time International Ratio 1.0 Blood Urea Nitrogen 10 Creatinine 0.85 Random Glucose 100 Calcium Level 9.5 Sodium Level 141 Potassium Level 3.5 Chloride Level 103 Carbon Dioxide Level 28.4 Anion Gap 10 Estimat Glomerular Filtration Rate 99 Total Creatine Kinase 126 Creatine Kinase MB 1.2 Troponin I LESS THAN 0.02 Result Diagram: 08/20/17 1143 08/20/17 1143 Imaging Last Impressions Chest X-Ray 08/20/17 1110 Signed Impressions: CONCLUSION: Pacer in satisfactory position. No acute cardiopulmonary findings. Caprini VTE Risk Assessment Caprini VTE Risk Assessment: No/Low Risk (score <= 1) Caprini Risk Assessment Model Point Value = 1 Point Value = 2 Point Value = 3 Point Value = 5 Age 41-60 Minor surgery BMI > 25 kg/m2 Swollen legs Varicose veins or History of unexplained or recurrent spontaneous Oral contraceptives or hormone replacement Sepsis (< 1 month) Serious lung disease, including pneumonia (< 1 month) Abnormal pulmonary function Acute myocardial infarction Congestive heart failure (< 1 month) History of inflammatory bowel disease Medical patient at bed rest Age 61-74 Arthroscopic surgery Major open surgery (> 45 min) Laparoscopic surgery (> 45 min) Malignancy Confined to bed (> 72 hours) Immobilizing plaster cast Central venous access Age >= 75 History of VTE Family history of VTE Factor V Leiden Prothrombin 26471H Lupus anticoagulant Anticardiolipin antibodies Elevated serum homocysteine Heparin-induced thrombocytopenia Other congenital or acquired thrombophilia Stroke (< 1 month) Elective arthroplasty Hip, pelvis, or leg fracture Acute spinal cord injury (< 1 month) Prophylaxis Regimen Total Risk Factor Score Risk Level Prophylaxis Regimen 0-1 Low Early ambulation 2 Moderate Order ONE of the following: *Sequential Compression Device (SCD) *Heparin 5000 units SQ BID 3-4 Higher Order ONE of the following medications: *Heparin 5000 units SQ TID *Enoxaparin/Lovenox 40 mg SQ daily (WT < 150 kg, CrCl > 30 mL/min) *Enoxaparin/Lovenox 30 mg SQ daily (WT < 150 kg, CrCl > 10-29 mL/min) *Enoxaparin/Lovenox 30 mg SQ BID (WT < 150 kg, CrCl > 30 mL/min) AND/OR *Sequential Compression Device (SCD) 5 or more Highest Order ONE of the following medications: *Heparin 5000 units SQ TID (Preferred with Epidurals) *Enoxaparin/Lovenox 40 mg SQ daily (WT < 150 kg, CrCl > 30 mL/min) *Enoxaparin/Lovenox 30 mg SQ daily (WT < 150 kg, CrCl > 10-29 mL/min) *Enoxaparin/Lovenox 30 mg SQ BID (WT < 150 kg, CrCl > 30 mL/min) AND *Sequential Compression Device (SCD) Assessment and Plan Assessment and Plan 27-year-old female with past medical history of prolonged QT syndrome and obstructive sleep apnea who presents to the emergency department today after AICD fired early this morning. Prolonged QT syndrome AICD discharge -Planned for ablation by her manager military this August. -AICD interrogation performed today showing episode of V. fib with subsequent shock and NSR reestablished - EKG with QT interval 399, troponin negative. - Call placed by ER physician to , he was not available. Will admit to [facility] for 24hr observation with tele. - Consult for further recommendations, NPO after MN for possible ablation - Continue Sotalol. Obstructive sleep apnea -Patient can follow-up with sleep study as outpatient DVT prophylaxis-SCDs the above note was scribed by Ms.Marizsa Sargent. I attest that I had a face-to- face encounter with the patient on the same day and personally performed the history and physical exam and medical decision making. Discussed Condition With ER physician and the patient. Erick Sargent August 20, 2017 18:10 oTny Murrell MD August 20, 2017 18:32
[2017-08-20] MEDS ORDERED: PILL SPLITTER OTHER PRN (19:00)
[2017-08-20 20:00] VITALS: BP 148/82; PULSE 85; RESP 20; O2SAT 98
[2017-08-20] MEDS: SODIUM CHLOR 0.9% 1000 ML INJ 1,000 ML IV SCH (22:19)
[2017-08-20] MEDS: SOTALOL HCL 80 MG TAB PO SCH (22:19)
[2017-08-21] VITALS (14 sets, daily range): BP systolic 133–155; BP diastolic 77–96; PULSE 60–104; RESP 13–24; TEMP 97.8–99.9; O2SAT 92–100
[2017-08-21] MEDS: MORPHINE SULFATE 4 MG/ML INJ IV PRN ×3 (00:50→12:52)
[2017-08-21] MEDS ORDERED: POTASSIUM CHLORIDE 20 MEQ CONTROLLED RELEASE TAB PO ONE (01:15)
[2017-08-21] MEDS ORDERED: MAGNESIUM SULFATE 1 GM PREMIX 100 ML IV ONE ×2 (01:15→01:30)
[2017-08-21] MEDS ORDERED: LORazepam 2 MG/ML VIAL IV PUSH ONE (01:30)
[2017-08-21] MEDS ORDERED: MORPHINE SULFATE 4 MG/ML INJ IV PUSH ONE (01:30)
[2017-08-21] MEDS ORDERED: METOPROLOL TARTRATE 25 MG TAB PO ONE (01:30)
[2017-08-21] MEDS: METOPROLOL TARTRATE 5 MG/5 ML VIAL IV PUSH ONE ×2 (01:45→03:40)
[2017-08-21] MEDS ORDERED: ONDANSETRON ODT 4 MG TAB PO PRN (01:45)
[2017-08-21] MEDS ORDERED: CHLORHEXIDINE GLUCONATE 2 % 1 PACK (2 CLOTHS)(extra cloths) TOPICAL PRN (02:00)
[2017-08-21 02:30] LABS: BICARBONATE 25.3 MEQ/L (21.0-32.0); CALCIUM 9.3 MG/DL (8.5-10.1); CREATININE 0.97 MG/DL (0.50-1.00); MAGNESIUM 4.6 MG/DL (1.5-2.5)
--- NOTE | 2017-08-21 02:37 | HHI.PR ---
Addendum to Inpatient Note Addendum Reason: Additional Documentation Additional Information Patient's AICD was firing multiple times. Discussed case with Dr. Butler, Cardiology who recommended metoprolol 25mg BID, potassium 40meq, and magnesium 2 gm IV. Patient will be transferred to the ICU for closer monitoring, Stat BMP and mag ordered along with Morphine and Ativan. Patients family was updated at bedside. Rachelle Romero Aug 21, 2017 02:37
[2017-08-21] MEDS: POTASSIUM CHLOR 20 MEQ PREMIX 100 ML IV SCH ×2 (02:41→05:34)
[2017-08-21] MEDS: CHLORHEXIDINE GLUCONATE 2 % 1 PACK (2 CLOTHS)(taper/protocol) TOPICAL SCH (04:00)
[2017-08-21] MEDS: SOTALOL HCL 80 MG TAB PO SCH (08:51)
[2017-08-21] MEDS ORDERED: METOPROLOL TARTRATE 25 MG TAB PO SCH (09:00)
--- NOTE | 2017-08-21 09:08 | HHI.PR ---
Subjective Remarks Patient reports having some heartburn since last night per nursing, patient says that this is classic heartburn that responds to Tums. Denies having any shocks from her ICD since she was transferred to the [facility]. Patient affirms that she does not wear any oxygen at home, denies any lung disease or any asthma. Objective Vital Signs Date Time Temp Pulse Resp B/P (MAP) Pulse Ox O2 Delivery O2 Flow Rate FiO2 08/21/17 06:00 92 Nasal Cannula 3.00 08/21/17 06:00 67 08/21/17 04:00 98.3 70 21 133/77 (95) 94 08/21/17 04:00 72 08/21/17 02:00 81 08/21/17 01:57 99.9 78 20 137/81 (99) 97 08/21/17 00:55 20 08/21/17 00:21 60 08/21/17 00:00 97.8 82 18 155/96 (115) 100 08/20/17 20:00 85 20 148/82 (104) 98 Room Air 08/20/17 19:00 08/20/17 16:32 75 16 148/93 (111) 100 Room Air 08/20/17 12:15 100 Room Air 08/20/17 12:15 65 16 100 Room Air 08/20/17 12:01 99 Room Air 08/20/17 11:30 106 19 165/97 (119) 99 Room Air 08/20/17 10:42 98.4 86 16 147/87 (107) 98 I/O 08/20/17 08/20/17 08/20/17 08/21/17 08/21/17 08/21/17 06:59 14:59 22:59 06:59 14:59 22:59 Intake Total 200 ml Balance 200 ml Intake IV Total 200 ml # Voids 2 # Bowel Movements 0 Result Diagram: 08/20/17 1143 08/21/17 0130 Objective Remarks Heart sounds indicate regular rate and rhythm, no murmurs Unlabored breathing, no cyanosis, on nasal cannula A/P Assessment and Plan 27-year-old female with past medical history of prolonged QT syndrome and obstructive sleep apnea who presents to the emergency department today after AICD fired early this morning. Prolonged QT syndrome AICD discharge - Planned for ablation by her transportation agent this August. - AICD interrogation performed today showing episode of V. fib with subsequent shock and NSR reestablished - EKG with QT interval 399, troponin negative. - Call placed by ER physician to , he was not available. Will admit to [facility] for 24hr observation with tele. - Consult Dr. Stein for further recommendations, NPO after MN for possible ablation - Continue Sotalol. - instructed RN to contact device company for interrogation. Obstructive sleep apnea - Patient can follow-up with sleep study as outpatient heartburn - likely acid reflux in origin, starting some maalox, will repeat troponin DVT prophylaxis-SCDs Addendum: Patient undergoing multiple shocks more frequently now, per cardiology 's request will transfer care to law enforcement officer. Francisco Bergman MD Aug 21, 2017 09:08
[2017-08-21] MEDS ORDERED: ALUMINUM/MAGNESIUM/SIMETH 30 ML CUP PO ONE (09:15)
[2017-08-21] MEDS: SODIUM CHLOR 0.9% 1000 ML INJ 1,000 ML IV SCH ×3 (11:20→18:09)
[2017-08-21] MEDS ORDERED: METOPROLOL TARTRATE 5 MG/5 ML VIAL ONE (13:05)
[2017-08-21] MEDS ORDERED: POTASSIUM CHLORIDE 25 MEQ EFFERVESCENT TAB PO ONE (13:30)
[2017-08-21] MEDS: METOPROLOL TARTRATE 5 MG/5 ML VIAL IV PUSH SCH ×2 (13:47→13:48)
[2017-08-21] MEDS ORDERED: AMIODARONE HCL 150 MG/3 ML VIAL ONE (13:54)
--- NOTE | 2017-08-21 14:51 | EKG ---
Date Performed: 08/21/2017 Time Performed: 01:21:14 PTAGE: 27 years EKG: Sinus rhythm . Prolonged QT interval Anterior T wave changes are nonspecific Borderline ECG Compared to PREVIOUS TRACING , QT interval is longer. PREVIOUS TRACIN08/20/2017 10.48 DOCTOR: Shaheen Desai Interpretating Date/Time 08/21/2017 14:49:29
--- NOTE | 2017-08-21 15:12 | MB ---
cc: Chayo Stein MD,Gareth Bergman,Francisco Finch MD DATE: 08/21/2017 REASON FOR CONSULTATION: Recurrent episodes of ventricular fibrillation, defibrillatory shock. HISTORY OF PRESENT ILLNESS: Mrs. Sanford is a 27-year-old female with history of long QT syndrome. She had a previous defibrillator implanted in 2014. She was free of shock for a long period. The past couple of months she had 2 shocks. Subsequently, yesterday she had around 7-8 shocks. She decided to come to the emergency room. Most of the shocks were ventricular fibrillation. She was admitted. She has long QT. Multiple PVCs observed. The PVCs are inducing the tachyarrhythmia. Defibrillator interrogation show were appropriate and I was consulted for evaluation. This chart was reviewed. The patient was evaluated. ALLERGIES: CLINDAMYCIN. SOCIAL HISTORY: Negative for smoking and drinking. FAMILY HISTORY: Noncontributory to her current medical condition. MEDICATIONS: Currently she is on magnesium, acetaminophen and metoprolol, Zofran. REVIEW OF SYSTEMS: Currently, she refers no chest pain, no chest discomfort. She is very anxious. No fever. PHYSICAL EXAMINATION: GENERAL: Alert, fully oriented. VITAL SIGNS: Blood pressure is 140/82, pulse 70, respiratory rate 18. LUNGS: Ventilated. CARDIOVASCULAR: S1, S2, irregular. ABDOMEN: Soft. No mass or bruits. EXTREMITIES: No edema. Electrocardiogram shows sinus rhythm, long QT, multiple PVCs. ASSESSMENT AND RECOMMENDATIONS: Mrs. Sanford was having a lot of episodes of ventricular fibrillation. She had multiple defibrillatory shocks. At this point, I am going to stop the sotalol. I am going to increase the metoprolol. My plan is, in the next 24 hours if continues with all those episodes, then I will initiate amiodarone IV. There was a lot of family at bedside. I discussed the case extensively with them. The sotalol may prolong moderate QT interval. I am going to avoid class B medications for now. If necessary mexiletine will be used in the future. I am going to increase the heart rate to around 108, pacing the atrium at 100 beats per minute so I can over-ride those premature ventricular contractions. Her condition is critical. Management about the medications will be done as we go. Mrs. Sanford is not a candidate for ablation at this point because what we have is atrial fibrillation/atrial tachycardia. On this admission I am going to do pace over-ride. The patient's condition is of care. Dr. Sheppard is litigation coordinator for the weekend and I will be available as backup and evaluate Mrs. Sanford on a daily basis. Chayo Stein MD HS/SB , 02:11 PM , 03:11 PM
[2017-08-21] MEDS ORDERED: POTASSIUM PHOSPHATE MONOBASIC 500 MG TAB PO/TUBE PRN (15:45)
[2017-08-21] MEDS ORDERED: POTASSIUM CHLOR 40 MEQ PREMIX 100 ML IV PRN ×2 (15:45)
[2017-08-21] MEDS ORDERED: POTASSIUM CHLORIDE 25 MEQ EFFERVESCENT TAB PO PRN (15:45)
[2017-08-21] MEDS ORDERED: MAGNESIUM SULFATE INJ 4 GM in SODIUM CHLORIDE 0.9% INJ 92 ML IV PRN (15:45)
[2017-08-21] MEDS ORDERED: POTASSIUM CHLOR 20 MEQ PREMIX 100 ML IV PRN ×2 (15:45)
[2017-08-21] MEDS ORDERED: POTASSIUM PHOSPHATE INJ 30 MMOL in SODIUM CHLOR 0.9% 250 ML INJ 250 ML IV PRN (15:45)
[2017-08-21] MEDS ORDERED: POTASSIUM PHOSPHATE MONOBASIC 500 MG TAB PO PRN (15:45)
[2017-08-21] MEDS ORDERED: MAGNESIUM OXIDE 400 MG TAB PO PRN (15:45)
[2017-08-21] MEDS ORDERED: SODIUM PHOSPHATE INJ 30 MMOL in SODIUM CHLOR 0.9% 250 ML INJ 240 ML IV PRN (15:45)
[2017-08-21] MEDS ORDERED: MAGNESIUM SULFATE INJ 2 GM in SODIUM CHLORIDE 0.9% INJ 96 ML IV PRN (15:45)
--- NOTE | 2017-08-21 16:13 | PD.CONS ---
HPI Service Critical Care Medicine Consult Requested By Primary Care Physician Gareth Aponte MD History of Present Illness HPI This is a 27-year-old female with a history of prolonged QT syndrome with a AICD in place, who presents today after having her AICD fire this morning while sleeping. Patient states that she woke up the palpitations and shortly thereafter her AICD fired. An EKG was performed upon admission noted QTc 399. Magnesium and potassium were repleted . The patient received doses of amiodarone and sotalol , which have now been discontinued . Her belt operator is Dr. Stein and requested critical care medicine consultation. History PFSH Past Medical History Asthma: No Blood Disorders: No Heart Rhythm Problems: Yes (PROLONGED QT SYNDROME) Cancer: No Cardiovascular Problems: Yes High Cholesterol: No Chemotherapy: No Chest Pain: No Congestive Heart Failure: No COPD: No Diabetes: No Diminished Hearing: No Endocrine: No Genitourinary: No Headaches: Yes Immune Disorder: No Implanted Vascular Access Dvce: Yes Musculoskeletal: No Neurologic: No Psychiatric: No Reproductive: No Respiratory: No Immunizations Current: Yes Radiation Therapy: No Sleep Apnea: No Thyroid Disease: No : 2 Para: 1 Miscarriage: 1 Past Surgical History AICD: Yes ([employer]) Section: Yes Tonsillectomy: Yes Other Surgery: Yes (AICD PLACEMENT , ) Social History Alcohol Use: Yes (SOCIALLY) Tobacco Use: No Substance Use: No Allergies-Medications Allergies-Medications (Allergen,Severity, Reaction): Coded Allergies: clindamycin (Verified Allergy, Unknown, 08/20/17) Reported Meds & Prescriptions Reported Meds & Active Scripts Active Sorine (Sotalol HCl) 80 Mg Tab 120 Mg PO BID 30 Days Ibuprofen 800 Mg Tab 800 Mg PO Q6HR PRN ROS Review of Systems Except as stated in HPI: all other systems reviewed are Neg General / Constitutional: No: Fever, Chills HENT: No: Headaches, Neck Pain Cardiovascular: Positive: Palpitations, No: Chest Pain or Discomfort, Irregular Rhythm (Earlier) Respiratory: No: Cough, Shortness of Breath Gastrointestinal: No: Nausea, Vomiting, Abdominal Pain Genitourinary: No: Frequency, Dysuria Musculoskeletal: No: Weakness, Pain Neurologic: Positive: Dizziness (Lightheaded when), No: Weakness, Headache ( in x-ray, none now.) Physical Exam Vital Signs Vital Signs Date Time Temp Pulse Resp B/P (MAP) Pulse Ox O2 Delivery O2 Flow Rate FiO2 08/21/17 14:00 82 08/21/17 12:00 82 08/21/17 12:00 98.0 66 13 149/86 (107) 95 08/21/17 10:00 74 08/21/17 08:00 70 08/21/17 08:00 97.8 70 23 140/82 (101) 93 08/21/17 06:00 92 Nasal Cannula 3.00 08/21/17 06:00 67 08/21/17 04:00 98.3 70 21 133/77 (95) 94 08/21/17 04:00 72 08/21/17 02:00 81 08/21/17 01:57 99.9 78 20 137/81 (99) 97 08/21/17 00:55 20 08/21/17 00:21 60 08/21/17 00:00 97.8 82 18 155/96 (115) 100 08/20/17 20:00 85 20 148/82 (104) 98 Room Air 08/20/17 19:00 08/20/17 16:32 75 16 148/93 (111) 100 Room Air Laboratory Laboratory Tests Test 08/21/17 01:30 08/21/17 02:00 08/21/17 05:50 08/21/17 09:00 Blood Urea Nitrogen 11 Creatinine 0.97 Random Glucose 129 Calcium Level 9.3 Magnesium Level 4.6 2.7 Sodium Level 142 Potassium Level 3.2 Chloride Level 102 Carbon Dioxide Level 25.3 Anion Gap 15 Estimat Glomerular Filtration Rate 85 Nasal Screen MRSA (PCR) MRSA NOT DETECTED Troponin I 0.07 0.07 Test 08/21/17 12:15 Potassium Level 4.0 Result Diagram: 08/20/17 1143 08/21/17 1215 Imaging Last Impressions Chest X-Ray 08/20/17 1110 Signed Impressions: CONCLUSION: Pacer in satisfactory position. No acute cardiopulmonary findings. Septic Shock Reassessment Septic shock perfusion: reassessment completed Assessment and Plan Problem List: (1) AICD discharge ICD Code: Z45.02 - Encounter for adjustment and management of automatic implantable cardiac defibrillator (2) Prolonged QT interval syndrome ICD Code: I45.81 - Long QT syndrome Assessment and Plan Assessment This is a 27-year-old young female with a medical history significant for prolonged QT syndrome, with recent multiple discharges from AICD device, secondary to multiple episodes of ventricular tachycardia. Admit to ICU. Plan by systems: Neurologic: Patient currently on morphine PRN for pain-discontinue secondary to sedative type effects Provide Ofirmev q 6 hr PRN for pain if needed Respiratory: Obstructive sleep apnea Avoid sedative type medications Maintain O2 saturation greater than 92% Incentive spirometry while awake Provide CPAP if needed at at bedtime Cardiovascular: Prolonged QT syndrome V. tach Continue Metoprolol Dr. Stein cardiology following -discontinue and avoid amiodarone and sotalol Initial EKG-QTC 399 Repeat EKG in a.m. Avoid class III antiarrhythmics Renal: No Velez required -- Strict I/Os FEN/GI: Obesity Regular diet Monitor electrolytes and replete per ICU protocol Obtain BMP at 1800 Monitor BMP Heme/ID: Monitor CBC Transfuse for hemoglobin less than 7 Endocrine: Glucose monitoring per ICU protocol -- SSI Prophylaxis: GI Prophylaxis DVT Prophylaxis -- SCDs Lines: Peripheral IVs 2. Central line if indicated Dispo: Level 3 consult Code Status Full Discussed Condition With Dr. Stein , patient, family and [employer]. Denise Michael MD Aug 21, 2017 16:13
[2017-08-21] MEDS ORDERED: ACETAMINOPHEN 1000 MG/100 ML 100 ML IV PRN (16:30)
[2017-08-21] MEDS: METOPROLOL TARTRATE 25 MG TAB PO SCH ×2 (16:53→21:48)
[2017-08-21] MEDS ORDERED: ONDANSETRON HCL 4 MG/2 ML VIAL IV PUSH PRN (17:30)
[2017-08-21 17:46] LABS: PHOSPHORUS 1.7 MG/DL (2.5-4.9)
[2017-08-21] MEDS: FAMOTIDINE 20 MG/2 ML VIAL IV PUSH SCH (18:09)
[2017-08-21 18:13] LABS: BICARBONATE 19.4 MEQ/L (21.0-32.0); CALCIUM 8.1 MG/DL (8.5-10.1); CREATININE 0.8 MG/DL (0.50-1.00); MAGNESIUM 2.6 MG/DL (1.5-2.5)
[2017-08-22] VITALS (13 sets, daily range): BP systolic 119–140; BP diastolic 66–92; PULSE 100–104; RESP 14–22; TEMP 97.6–98.8; O2SAT 92–100
[2017-08-22] MEDS: CHLORHEXIDINE GLUCONATE 2 % 1 PACK (2 CLOTHS)(taper/protocol) TOPICAL SCH (03:48)
[2017-08-22] MEDS: METOPROLOL TARTRATE 25 MG TAB PO SCH ×4 (03:48→21:59)
[2017-08-22 04:27] LABS: AUTOMATED NEUTROPHIL # 8.3 TH/MM3 (1.8-7.7); BASOPHIL % 0.4 % (0.0-2.0); EOSINOPHIL # 0.1 TH/MM3 (0-0.4); EOSINOPHIL % 1.1 % (0.0-4.0); HEMATOCRIT 41.6 % (35.0-46.0); HEMOGLOBIN 14.1 GM/DL (11.6-15.3); LYMPH % 23.3 % (9.0-44.0); LYMPHOCYTE # 2.8 TH/MM3 (1.0-4.8); MEAN CELL VOLUME 89.6 FL (80.0-100.0); MEAN CORPUSCULAR HEMOGLOBIN 30.4 PG (27.0-34.0); MEAN CORPUSCULAR HGB CONC 33.9 % (32.0-36.0); MEAN PLATELET VOLUME 8.6 FL (7.0-11.0); MONO % 5.6 % (0.0-8.0); MONOCYTE # 0.7 TH/MM3 (0-0.9); NEUT % 69.6 % (16.0-70.0); PLATELET COUNT 268 TH/MM3 (150-450); RED BLOOD COUNT 4.65 MIL/MM3 (4.00-5.30); RED CELL DISTRIBUTION WIDTH 12.7 % (11.6-17.2); WHITE BLOOD COUNT 11.9 TH/MM3 (4.0-11.0)
[2017-08-22 04:46] LABS: BICARBONATE 24.3 MEQ/L (21.0-32.0); CREATININE 0.66 MG/DL (0.50-1.00); MAGNESIUM 2.4 MG/DL (1.5-2.5); PHOSPHORUS 2.1 MG/DL (2.5-4.9)
[2017-08-22] MEDS: ACETAMINOPHEN 325 MG TAB PO PRN (06:13)
[2017-08-22] MEDS: FAMOTIDINE 20 MG/2 ML VIAL IV PUSH SCH ×2 (06:13→15:28)
[2017-08-22] MEDS: SODIUM CHLOR 0.9% 1000 ML INJ 1,000 ML IV SCH (06:42)
--- NOTE | 2017-08-22 10:57 | PD.CARD.PN ---
Subjective Subjective Remarks no complaints Objective Medications Current Medications Medications (Trade) Dose Ordered Sig/Demetris Route Start Time Stop Time Status Last Admin Sodium Chloride 1,000 ml @ 75 mls/hr [id number] IV 08/20/17 22:00 08/22/17 06:42 (Pill Splitter) 1 ea UNSCH PRN OTHER 08/20/17 19:00 (Tylenol) 650 mg Q4H PRN PO 08/21/17 00:15 08/22/17 06:13 (Zofran Odt) 4 mg Q6H PRN PO 08/21/17 01:45 ([facility] Nursing Information) Patient in critical care unit? Ass... Q361D .XX 08/21/17 02:00 (Chlorhexidine 2% Cloth) 3 pack DAILY@04 TOPICAL 08/21/17 04:00 08/25/17 04:01 08/22/17 03:48 (Chlorhexidine 2% Cloth) 3 pack UNSCH PRN TOPICAL 08/21/17 02:00 08/26/17 01:49 (Lopressor) 25 mg Q6H PO 08/21/17 16:00 08/22/17 08:32 Potassium Chloride 100 ml @ 50 mls/hr Q2H PRN IV 08/21/17 15:45 Potassium Chloride 100 ml @ 50 mls/hr Q2H PRN IV 08/21/17 15:45 (K-Lyte Cl Eff) 50 meq UNSCH PRN PO 08/21/17 15:45 Potassium Chloride 100 ml @ 25 mls/hr UNSCH PRN IV 08/21/17 15:45 Potassium Chloride 100 ml @ 50 mls/hr Q2H PRN IV 08/21/17 15:45 Magnesium Sulfate 4 gm/Sodium Chloride 100 ml @ 50 mls/hr UNSCH PRN IV 08/21/17 15:45 (Mag-Ox) 800 mg UNSCH PRN PO 08/21/17 15:45 Magnesium Sulfate 2 gm/Sodium Chloride 100 ml @ 50 mls/hr UNSCH PRN IV 08/21/17 15:45 (K-Phos) 2,000 mg Q4H PRN PO 08/21/17 15:45 Sodium Phosphate 30 mmol/Sodium Chloride 250 ml @ 42 mls/hr UNSCH PRN IV 08/21/17 15:45 (K-Phos) 2,000 mg UNSCH PRN PO/TUBE 08/21/17 15:45 Potassium Phosphate 30 mmol/ Sodium Chloride 260 ml @ 42 mls/hr UNSCH PRN IV 08/21/17 15:45 Acetaminophen 100 ml @ 400 mls/hr Q6H PRN IV 08/21/17 16:30 (Pepcid Inj) 20 mg Q12H IV PUSH 08/21/17 18:00 08/22/17 06:13 Vital Signs / I&O Vital Signs Date Time Temp Pulse Resp B/P (MAP) Pulse Ox O2 Delivery O2 Flow Rate FiO2 08/22/17 10:00 104 08/22/17 08:00 Nasal Cannula 4.00 Humidified 08/22/17 08:00 104 08/22/17 08:00 98.6 104 22 137/70 (92) 100 08/22/17 06:00 104 08/22/17 04:00 104 08/22/17 04:00 97.9 104 19 140/92 (108) 93 08/22/17 02:00 104 08/22/17 00:00 Nasal Cannula 6.00 Humidified 08/22/17 00:00 104 08/22/17 00:00 98.0 104 15 129/81 (97) 94 08/21/17 22:00 104 08/21/17 20:00 98.9 104 20 141/80 (100) 97 08/21/17 20:00 104 08/21/17 20:00 Nasal Cannula 4.00 Humidified 08/21/17 18:00 104 08/21/17 16:00 104 08/21/17 16:00 98.1 104 24 133/80 (97) 94 08/21/17 14:00 82 08/21/17 12:00 82 08/21/17 12:00 98.0 66 13 149/86 (107) 95 I/O 08/21/17 08/21/17 08/21/17 08/22/17 08/22/17 08/22/17 07:00 15:00 23:00 07:00 15:00 23:00 Intake Total 200 ml 1470 ml 1480 ml Output Total 700 ml Balance 200 ml 1470 ml 780 ml Intake Oral 480 ml 480 ml IV Total 200 ml 990 ml 1000 ml Output Urine Total 700 ml # Voids 2 1 2 # Bowel Movements 0 0 1 # Sanitary Pads 1 Pads 1 Pads 1 Pads 1 Pads Physical Exam Alert, NAD Chest clear CV S1S2 RRR 100% a paced, no PMVT since yesterday Laboratory Laboratory Tests Test 08/21/17 12:15 08/21/17 16:27 08/22/17 03:43 Potassium Level 4.0 MEQ/L 4.5 MEQ/L 3.8 MEQ/L Blood Urea Nitrogen 9 MG/DL 8 MG/DL Creatinine 0.80 MG/DL 0.66 MG/DL Random Glucose 149 MG/DL 89 MG/DL Calcium Level 8.1 MG/DL 8.0 MG/DL Phosphorus Level 1.7 MG/DL 2.1 MG/DL Magnesium Level 2.6 MG/DL 2.4 MG/DL Sodium Level 142 MEQ/L 141 MEQ/L Chloride Level 109 MEQ/L 107 MEQ/L Carbon Dioxide Level 19.4 MEQ/L 24.3 MEQ/L Anion Gap 14 MEQ/L 10 MEQ/L Estimat Glomerular Filtration Rate 106 ML/MIN 132 ML/MIN White Blood Count 11.9 TH/MM3 Red Blood Count 4.65 MIL/MM3 Hemoglobin 14.1 GM/DL Hematocrit 41.6 % Mean Corpuscular Volume 89.6 FL Mean Corpuscular Hemoglobin 30.4 PG Mean Corpuscular Hemoglobin Concent 33.9 % Red Cell Distribution Width 12.7 % Platelet Count 268 TH/MM3 Mean Platelet Volume 8.6 FL Neutrophils (%) (Auto) 69.6 % Lymphocytes (%) (Auto) 23.3 % Monocytes (%) (Auto) 5.6 % Eosinophils (%) (Auto) 1.1 % Basophils (%) (Auto) 0.4 % Neutrophils # (Auto) 8.3 TH/MM3 Lymphocytes # (Auto) 2.8 TH/MM3 Monocytes # (Auto) 0.7 TH/MM3 Eosinophils # (Auto) 0.1 TH/MM3 Basophils # (Auto) 0.0 TH/MM3 CBC Comment DIFF FINAL Differential Comment Assessment and Plan Problem List: (1) AICD discharge ICD Codes: Z45.02 - Encounter for adjustment and management of automatic implantable cardiac defibrillator (2) Prolonged QT interval syndrome ICD Codes: I45.81 - Long QT syndrome Assessment and Plan will give additional PO KCL Nikolay Sheppard MD Aug 22, 2017 10:56
[2017-08-22] MEDS ORDERED: POTASSIUM CHLORIDE 20 MEQ CONTROLLED RELEASE TAB PO ONE ×2 (13:30→14:00)
--- NOTE | 2017-08-22 14:02 | HHI.CCPN ---
Subjective Remarks/Hospital Course This is a 27-year-old female with a history of prolonged QT syndrome with a AICD in place, who presents today after having her AICD fire this morning while sleeping. Patient states that she woke up the palpitations and shortly thereafter her AICD fired. An EKG was performed upon admission noted QTc 399. Magnesium and potassium were repleted . The patient received doses of amiodarone and sotalol , which have now been discontinued . Her demand inspector is Dr. Stein and requested critical care medicine consultation. Subjective: 08/22: Overnight the patient BiPAP was placed on patient secondary to obstructive sleep apnea patient uncomfortable refused to noted hypopnea/apnea episodes during the night. Patient will require continued workup for obstructive sleep apnea. No further defibrillation/shocks via a ICD device. Patient's electrolytes were optimized yesterday, within normal limits today. Patient tolerating diet, IV fluids decreased. QT interval trended now decreased to less that 400ms. Objective Vital Signs Date Time Temp Pulse Resp B/P (MAP) Pulse Ox O2 Delivery O2 Flow Rate FiO2 08/22/17 12:00 98.3 104 17 133/77 (95) 92 08/22/17 08:00 Nasal Cannula 4.00 Humidified Intake and Output 08/22/17 08/22/17 08/23/17 08:00 16:00 00:00 Intake Total 1480 ml Output Total 700 ml Balance 780 ml Result Diagram: 08/22/17 0343 08/22/17 0343 Imaging Last Impressions Chest X-Ray 08/20/17 1110 Signed Impressions: CONCLUSION: Pacer in satisfactory position. No acute cardiopulmonary findings. A/P Problem List: (1) AICD discharge ICD Code: Z45.02 - Encounter for adjustment and management of automatic implantable cardiac defibrillator (2) Prolonged QT interval syndrome ICD Code: I45.81 - Long QT syndrome Assessment and Plan Assessment This is a 27-year-old young female with a medical history significant for prolonged QT syndrome, with recent multiple discharges from AICD device, secondary to multiple episodes of ventricular tachycardia. Admit to ICU. Plan by systems: Neurologic: Patient currently on morphine PRN for pain-discontinue secondary to sedative type effects Provide Ofirmev q 6 hr PRN for pain if needed Respiratory: Obstructive sleep apnea Avoid sedative type medications Maintain O2 saturation greater than 92% Incentive spirometry while awake Provide CPAP at bedtime-noted visualization of hypoxemia/apnea episodes Cardiovascular: Prolonged QT syndrome V. tach Continue Metoprolol per Cardiology, Dr. Sarita Stein cardiology following -discontinue and avoid amiodarone and sotalol Initial EKG-QTc 446, QT 410, now decreased today OT 348 QTc 426 Avoid class III antiarrhythmics Renal: No Velez required -- Strict I/Os FEN/GI: Obesity Nausea Heartburn Regular diet Monitor electrolytes and replete per ICU protocol Monitor BMP Potassium level Zofran as needed for nausea Famotidine IV BID Heme/ID: Monitor CBC Transfuse for hemoglobin less than 7 Endocrine: Glucose monitoring per ICU protocol -- SSI MSK: Advance activity level out of bed with assistance to bedside commode Prophylaxis: GI Prophylaxis DVT Prophylaxis -- SCDs Lines: Peripheral IVs 2. Central line if indicated Dispo: Level 2 follow-up. Plan transfer to [facility] in a.m.. Plan transfer to [facility] when bed becomes available. Physician Denise Morales MD Aug 22, 2017 14:02
--- NOTE | 2017-08-22 14:11 | EKG ---
Date Performed: 08/21/2017 Time Performed: 14:01:34 PTAGE: 27 years EKG: Sinus rhythm with frequent ventricular ectopy with 1 quadruplet of PVCs. There are other isolated PVCs present. T here are also what appears to be ectopic beats with an intraventricular conduction delay and some ST elevation of those beats but not of basic sinus beats. Diffuse nonspecific changes. Clinical correlat ion of tracing recommended. Abnormal ECG NO PREVIOUS TRACING DOCTOR: Darren Jin Interpretating Date/Time 08/22/2017 14:11:10
--- NOTE | 2017-08-22 14:22 | EKG ---
Date Performed: 08/22/2017 Time Performed: 06:07:18 PTAGE: 27 years EKG: Sinus tachycardia Poor R wave progression - probable normal variant Anterior T wave changes are normal for age and race Borderline ECG PREVIOUS TRACING 08/21/2017 Left atrial abnormality. Since previous tracing, the ectopy is no l onger present. DOCTOR: Darren Jin Interpretating Date/Time 08/22/2017 14:21:53
[2017-08-23] VITALS (11 sets, daily range): BP systolic 103–150; BP diastolic 63–103; PULSE 89–100; RESP 17–26; TEMP 98–99.1; O2SAT 81–100
[2017-08-23] MEDS: CHLORHEXIDINE GLUCONATE 2 % 1 PACK (2 CLOTHS)(taper/protocol) TOPICAL SCH (04:00)
[2017-08-23] MEDS: METOPROLOL TARTRATE 25 MG TAB PO SCH (05:13)
[2017-08-23] MEDS: FAMOTIDINE 20 MG/2 ML VIAL IV PUSH SCH ×2 (05:13→18:35)
--- NOTE | 2017-08-23 09:28 | PD.CARD.PN ---
Subjective Subjective Remarks no complaints Objective Medications Current Medications Medications (Trade) Dose Ordered Sig/Demetris Route Start Time Stop Time Status Last Admin Sodium Chloride 1,000 ml @ 30 mls/hr Q24H IV 08/20/17 22:00 08/22/17 06:42 (Pill Splitter) 1 ea UNSCH PRN OTHER 08/20/17 19:00 (Tylenol) 650 mg Q4H PRN PO 08/21/17 00:15 08/22/17 06:13 (Zofran Odt) 4 mg Q6H PRN PO 08/21/17 01:45 08/22/17 15:27 [place] Patient in critical care unit? Ass... Q361D .XX 08/21/17 02:00 (Chlorhexidine 2% Cloth) 3 pack DAILY@04 TOPICAL 08/21/17 04:00 08/25/17 04:01 08/23/17 04:00 (Chlorhexidine 2% Cloth) 3 pack UNSCH PRN TOPICAL 08/21/17 02:00 08/26/17 01:49 Potassium Chloride 100 ml @ 50 mls/hr Q2H PRN IV 08/21/17 15:45 Potassium Chloride 100 ml @ 50 mls/hr Q2H PRN IV 08/21/17 15:45 (K-Lyte Cl Eff) 50 meq UNSCH PRN PO 08/21/17 15:45 Potassium Chloride 100 ml @ 25 mls/hr UNSCH PRN IV 08/21/17 15:45 Potassium Chloride 100 ml @ 50 mls/hr Q2H PRN IV 08/21/17 15:45 Magnesium Sulfate 4 gm/Sodium Chloride 100 ml @ 50 mls/hr UNSCH PRN IV 08/21/17 15:45 (Mag-Ox) 800 mg UNSCH PRN PO 08/21/17 15:45 Magnesium Sulfate 2 gm/Sodium Chloride 100 ml @ 50 mls/hr UNSCH PRN IV 08/21/17 15:45 (K-Phos) 2,000 mg Q4H PRN PO 08/21/17 15:45 Sodium Phosphate 30 mmol/Sodium Chloride 250 ml @ 42 mls/hr UNSCH PRN IV 08/21/17 15:45 (K-Phos) 2,000 mg UNSCH PRN PO/TUBE 6/1/18 15:45 Potassium Phosphate 30 mmol/ Sodium Chloride 260 ml @ 42 mls/hr UNSCH PRN IV 08/21/17 15:45 Acetaminophen 100 ml @ 400 mls/hr Q6H PRN IV 08/21/17 16:30 (Pepcid Inj) 20 mg Q12H IV PUSH 08/21/17 18:00 08/23/17 05:13 (Toprol Xl) 100 mg BID PO 08/23/17 10:00 Vital Signs / I&O Vital Signs Date Time Temp Pulse Resp B/P (MAP) Pulse Ox O2 Delivery O2 Flow Rate FiO2 08/23/17 07:27 Nasal Cannula 6.00 08/23/17 06:00 100 08/23/17 04:00 98.8 100 22 103/69 (80) 81 08/23/17 04:00 100 08/23/17 02:00 100 08/23/17 00:00 100 08/23/17 00:00 98.6 100 18 150/103 (119) 88 08/22/17 22:00 100 08/22/17 20:00 100 08/22/17 20:00 98.8 100 19 127/75 (92) 93 08/22/17 19:00 98 Nasal Cannula 6.00 Humidified 08/22/17 18:00 100 08/22/17 16:00 100 08/22/17 16:00 97.6 100 14 119/66 (83) 92 08/22/17 14:00 100 08/22/17 12:00 98.3 104 17 133/77 (95) 92 08/22/17 12:00 104 08/22/17 10:00 104 I/O 08/22/17 08/22/17 08/22/17 08/23/17 08/23/17 08/23/17 07:00 15:00 23:00 07:00 15:00 23:00 Intake Total 1480 ml 960 ml 240 ml Output Total 700 ml 1400 ml 900 ml Balance 780 ml -440 ml -660 ml Intake Oral 480 ml 960 ml 240 ml IV Total 1000 ml Output Urine Total 700 ml 1400 ml 900 ml # Voids 2 # Bowel Movements 1 0 # Sanitary Pads 1 Pads 1 Pads 1 Pads Physical Exam Alert, NAD Chest clear CV S1S2 RRR 100% a paced, no PMVT since yesterday Assessment and Plan Problem List: (1) AICD discharge ICD Codes: Z45.02 - Encounter for adjustment and management of automatic implantable cardiac defibrillator (2) Prolonged QT interval syndrome ICD Codes: I45.81 - Long QT syndrome (3) Polymorphic ventricular tachycardia ICD Codes: I47.2 - Ventricular tachycardia Plan: Much better controlled. BP OK so will up her beta kadie. Assessment and Plan Transfer to floor Nikolay Sheppard MD Aug 23, 2017 09:28
--- NOTE | 2017-08-23 09:29 | HHI.PR ---
Subjective Remarks Nursing denies any deterioration since last night. Patient herself reports some heartburn and mild nausea which she says she has at home anyway, which responds to Tums. Denies having any chest pain or shortness of breath this morning, no shocks Objective Vital Signs Date Time Temp Pulse Resp B/P (MAP) Pulse Ox O2 Delivery O2 Flow Rate FiO2 08/23/17 07:27 Nasal Cannula 6.00 08/23/17 06:00 100 08/23/17 04:00 98.8 100 22 103/69 (80) 81 08/23/17 04:00 100 08/23/17 02:00 100 08/23/17 00:00 100 08/23/17 00:00 98.6 100 18 150/103 (119) 88 08/22/17 22:00 100 08/22/17 20:00 100 08/22/17 20:00 98.8 100 19 127/75 (92) 93 08/22/17 19:00 98 Nasal Cannula 6.00 Humidified 08/22/17 18:00 100 08/22/17 16:00 100 08/22/17 16:00 97.6 100 14 119/66 (83) 92 08/22/17 14:00 100 08/22/17 12:00 98.3 104 17 133/77 (95) 92 08/22/17 12:00 104 08/22/17 10:00 104 I/O 08/22/17 08/22/17 08/22/17 08/23/17 08/23/17 08/23/17 07:00 15:00 23:00 07:00 15:00 23:00 Intake Total 1480 ml 960 ml 240 ml Output Total 700 ml 1400 ml 900 ml Balance 780 ml -440 ml -660 ml Intake Oral 480 ml 960 ml 240 ml IV Total 1000 ml Output Urine Total 700 ml 1400 ml 900 ml # Voids 2 # Bowel Movements 1 0 # Sanitary Pads 1 Pads 1 Pads 1 Pads Result Diagram: 08/22/17 0343 08/22/17 0343 Objective Remarks Heart rate is slightly tachycardic, but regular rhythm Clear lungs bilaterally, sitting up in bed, awake and alert, no acute distress A/P Assessment and Plan 27-year-old female with past medical history of prolonged QT syndrome and obstructive sleep apnea who presents to the emergency department today after AICD fired early this morning. Prolonged QT syndrome AICD discharge - Planned for ablation by her mortgage loan underwriter this August. - AICD interrogation with pacer modified, heart rate now in the low 100s, no more ICD firing noted - plan to lower rate manually - on Toprol XL per cardiology Obstructive sleep apnea - Patient can follow-up with sleep study as outpatient heartburn -We will start Tums miralax DVT prophylaxis-SCDs Francisco Bergman MD Aug 23, 2017 09:29
[2017-08-23] MEDS ORDERED: CALCIUM CARBONATE 500 MG CHEWABLE TAB CHEW PRN (09:45)
[2017-08-23] MEDS: METOPROLOL SUCCINATE 50 MG EXTENDED RELEASE TAB PO SCH ×2 (09:55→20:10)
[2017-08-23] MEDS ORDERED: POLYETHYLENE GLYCOL 17 GM PKG PO ONE (13:45)
--- NOTE | 2017-08-23 15:42 | EKG ---
Date Performed: 08/22/2017 Time Performed: 11:13:00 PTAGE: 27 years EKG: Sinus tachycardia. Poor R wave progression - probable normal variant Anterior T wave change s are nonspecific Borderline ECG PREVIOUS TRACING 08/22/17 Since the previous tracing, no significant change noted DOCTOR: Darren Jin Interpretating Date/Time 08/23/2017 15:40:53
[2017-08-24] VITALS (11 sets, daily range): BP systolic 117–159; BP diastolic 66–95; PULSE 75–89; RESP 15–23; TEMP 97.7–99.1; O2SAT 83–99
[2017-08-24] MEDS: SODIUM CHLOR 0.9% 1000 ML INJ 1,000 ML IV SCH (03:20)
[2017-08-24] MEDS: CHLORHEXIDINE GLUCONATE 2 % 1 PACK (2 CLOTHS)(taper/protocol) TOPICAL SCH (04:00)
[2017-08-24] MEDS: FAMOTIDINE 20 MG/2 ML VIAL IV PUSH SCH (05:35)
[2017-08-24 07:51] LABS: BICARBONATE 27.1 MEQ/L (21.0-32.0); CALCIUM 8.8 MG/DL (8.5-10.1); CREATININE 0.65 MG/DL (0.50-1.00); MAGNESIUM 2.2 MG/DL (1.5-2.5)
[2017-08-24] MEDS: METOPROLOL SUCCINATE 50 MG EXTENDED RELEASE TAB PO SCH ×2 (08:38→22:49)
[2017-08-24] MEDS: POLYETHYLENE GLYCOL 17 GM PKG PO SCH (08:40)
[2017-08-24] MEDS: ACETAMINOPHEN 325 MG TAB PO PRN (08:42)
--- NOTE | 2017-08-24 09:47 | HHI.PR ---
Subjective Remarks Nursing denies any deterioration since last night. Heartburn improved w/ tums, had a BM yesterday. Objective Vital Signs Date Time Temp Pulse Resp B/P (MAP) Pulse Ox O2 Delivery O2 Flow Rate FiO2 08/24/17 08:00 89 08/24/17 08:00 97.7 89 22 121/74 (90) 99 08/24/17 07:00 95 Nasal Cannula 6.00 Humidified 08/24/17 04:00 89 08/24/17 04:00 98.1 89 23 132/76 (94) 91 08/24/17 00:00 89 08/24/17 00:00 98.6 89 18 124/78 (93) 93 08/23/17 20:00 89 08/23/17 20:00 99.1 89 26 114/84 (94) 92 08/23/17 19:00 92 Nasal Cannula 6.00 Humidified 08/23/17 18:00 89 08/23/17 16:00 89 08/23/17 16:00 98.0 89 17 119/63 (81) 100 08/23/17 14:00 89 08/23/17 12:00 100 08/23/17 12:00 98.6 100 19 130/75 (93) 97 08/23/17 10:00 100 I/O 08/23/17 08/23/17 08/23/17 08/24/17 08/24/17 08/24/17 06:59 14:59 22:59 06:59 14:59 22:59 Intake Total 240 ml 720 ml 480 ml Output Total 900 ml Balance -660 ml 720 ml 480 ml Intake Oral 240 ml 720 ml 480 ml Output Urine Total 900 ml # Voids 3 2 # Bowel Movements 2 1 Result Diagram: 08/22/17 0343 08/24/17 0456 Objective Remarks Heart rate is slightly tachycardic, but regular rhythm Clear lungs bilaterally, sitting up in bed, awake and alert, no acute distress A/P Assessment and Plan 27-year-old female with past medical history of prolonged QT syndrome and obstructive sleep apnea who presents to the emergency department today after AICD fired early this morning. Prolonged QT syndrome AICD discharge - Planned for ablation by her setter cold rolling machine this August. - AICD interrogation with pacer modified, heart rate now in the low 100s, no more ICD firing noted - plan to lower rate manually down to 75 today - on Toprol XL per cardiology Obstructive sleep apnea - Patient can follow-up with sleep study as outpatient heartburn -improved w/ tums miralax DVT prophylaxis-SCDs Discharge Planning stable for med/surg, anticipate d/c carlie once cleared by cardiology Francisco Bergman MD Aug 24, 2017 09:47
--- NOTE | 2017-08-24 10:57 | PD.CARD.PN ---
Subjective Subjective Remarks no complaints Objective Medications Current Medications Medications (Trade) Dose Ordered Sig/Demetris Route Start Time Stop Time Status Last Admin Sodium Chloride 1,000 ml @ 30 mls/hr Q24H IV 08/20/17 22:00 08/24/17 03:20 (Pill Splitter) 1 ea UNSCH PRN OTHER 08/20/17 19:00 (Tylenol) 650 mg Q4H PRN PO 08/21/17 00:15 08/24/17 08:42 (Zofran Odt) 4 mg Q6H PRN PO 08/21/17 01:45 08/22/17 15:27 [place] [place] Patient in [place] care unit? Ass... Q361D .XX 08/21/17 02:00 (Chlorhexidine 2% Cloth) 3 pack DAILY@04 TOPICAL 08/21/17 04:00 08/25/17 04:01 08/24/17 04:00 (Chlorhexidine 2% Cloth) 3 pack UNSCH PRN TOPICAL 08/21/17 02:00 08/26/17 01:49 Potassium Chloride 100 ml @ 50 mls/hr Q2H PRN IV 08/21/17 15:45 Potassium Chloride 100 ml @ 50 mls/hr Q2H PRN IV 08/21/17 15:45 (K-Lyte Cl Eff) 50 meq UNSCH PRN PO 08/21/17 15:45 Potassium Chloride 100 ml @ 25 mls/hr UNSCH PRN IV 08/21/17 15:45 Potassium Chloride 100 ml @ 50 mls/hr Q2H PRN IV 08/21/17 15:45 Magnesium Sulfate 4 gm/Sodium Chloride 100 ml @ 50 mls/hr UNSCH PRN IV 08/21/17 15:45 (Mag-Ox) 800 mg UNSCH PRN PO 08/21/17 15:45 Magnesium Sulfate 2 gm/Sodium Chloride 100 ml @ 50 mls/hr UNSCH PRN IV 08/21/17 15:45 (K-Phos) 2,000 mg Q4H PRN PO 08/21/17 15:45 Sodium Phosphate 30 mmol/Sodium Chloride 250 ml @ 42 mls/hr UNSCH PRN IV 08/21/17 15:45 (K-Phos) 2,000 mg UNSCH PRN PO/TUBE 6/1/18 15:45 Potassium Phosphate 30 mmol/ Sodium Chloride 260 ml @ 42 mls/hr UNSCH PRN IV 08/21/17 15:45 Acetaminophen 100 ml @ 400 mls/hr Q6H PRN IV 08/21/17 16:30 (Pepcid Inj) 20 mg Q12H IV PUSH 08/21/17 18:00 08/24/17 05:35 (Toprol Xl) 100 mg BID PO 08/23/17 10:00 08/24/17 08:38 (Tums Chew) 500 mg Q4HR PRN CHEW 08/23/17 09:45 (Miralax) 17 gm DAILY PO 08/24/17 09:00 Vital Signs / I&O Vital Signs Date Time Temp Pulse Resp B/P (MAP) Pulse Ox O2 Delivery O2 Flow Rate FiO2 08/24/17 10:00 18 08/24/17 08:00 89 08/24/17 08:00 97.7 89 22 121/74 (90) 99 08/24/17 07:00 95 Nasal Cannula 6.00 Humidified 08/24/17 04:00 89 08/24/17 04:00 98.1 89 23 132/76 (94) 91 08/24/17 00:00 89 08/24/17 00:00 98.6 89 18 124/78 (93) 93 08/23/17 20:00 89 08/23/17 20:00 99.1 89 26 114/84 (94) 92 08/23/17 19:00 92 Nasal Cannula 6.00 Humidified 08/23/17 18:00 89 08/23/17 16:00 89 08/23/17 16:00 98.0 89 17 119/63 (81) 100 08/23/17 14:00 89 08/23/17 12:00 100 08/23/17 12:00 98.6 100 19 130/75 (93) 97 I/O 08/23/17 08/23/17 08/23/17 08/24/17 08/24/17 08/24/17 07:00 15:00 23:00 07:00 15:00 23:00 Intake Total 240 ml 720 ml 480 ml Output Total 900 ml Balance -660 ml 720 ml 480 ml Intake Oral 240 ml 720 ml 480 ml Output Urine Total 900 ml # Voids 3 2 # Bowel Movements 2 1 Physical Exam Alert, NAD Chest clear CV S1S2 RRR 100% a paced, no PMVT no edema has sleep apnea eval planned as OP Laboratory Laboratory Tests Test 08/24/17 04:56 Blood Urea Nitrogen 13 MG/DL Creatinine 0.65 MG/DL Random Glucose 82 MG/DL Calcium Level 8.8 MG/DL Magnesium Level 2.2 MG/DL Sodium Level 142 MEQ/L Potassium Level 3.3 MEQ/L Chloride Level 105 MEQ/L Carbon Dioxide Level 27.1 MEQ/L Anion Gap 10 MEQ/L Estimat Glomerular Filtration Rate 134 ML/MIN Assessment and Plan Problem List: (1) AICD discharge ICD Codes: Z45.02 - Encounter for adjustment and management of automatic implantable cardiac defibrillator (2) Prolonged QT interval syndrome ICD Codes: I45.81 - Long QT syndrome (3) Polymorphic ventricular tachycardia ICD Codes: I47.2 - Ventricular tachycardia Assessment and Plan Pacer rate rate lowered to 75. Home tomorrow on increased dose metoprolol. Nikolay Sheppard MD Aug 24, 2017 10:57
[2017-08-24] MEDS: FAMOTIDINE 20 MG TAB PO SCH (22:49)
[2017-08-25] MEDS: CHLORHEXIDINE GLUCONATE 2 % 1 PACK (2 CLOTHS)(taper/protocol) TOPICAL SCH (02:58)
[2017-08-25] MEDS: SODIUM CHLOR 0.9% 1000 ML INJ 1,000 ML IV SCH (02:58)
[2017-08-25 03:38] VITALS: PULSE 75
[2017-08-25 04:00] VITALS: BP 134/93; PULSE 79; RESP 18; TEMP 97.3; O2SAT 97
[2017-08-25 08:00] VITALS: PULSE 85
[2017-08-25 08:20] VITALS: BP 119/72; PULSE 85; RESP 18; TEMP 98.4; O2SAT 98
[2017-08-25] MEDS: POLYETHYLENE GLYCOL 17 GM PKG PO SCH (09:00)
--- NOTE | 2017-08-25 10:05 | PD.CARD.PN ---
Subjective Subjective Remarks no complaints Objective Medications Current Medications Medications (Trade) Dose Ordered Sig/Demetris Route Start Time Stop Time Status Last Admin Sodium Chloride 1,000 ml @ 30 mls/hr Q24H IV 08/20/17 22:00 08/24/17 03:20 (Pill Splitter) 1 ea UNSCH PRN OTHER 08/20/17 19:00 (Tylenol) 650 mg Q4H PRN PO 08/21/17 00:15 08/24/17 08:42 (Zofran Odt) 4 mg Q6H PRN PO 08/21/17 01:45 08/22/17 15:27 ([facility] [place] Nursing [place]) Patient in critical care unit? Ass... Q361D .XX 08/21/17 02:00 (Chlorhexidine 2% Cloth) 3 pack UNSCH PRN TOPICAL 08/21/17 02:00 08/26/17 01:49 Potassium Chloride 100 ml @ 50 mls/hr Q2H PRN IV 08/21/17 15:45 Potassium Chloride 100 ml @ 50 mls/hr Q2H PRN IV 08/21/17 15:45 (K-Lyte Cl Eff) 50 meq UNSCH PRN PO 08/21/17 15:45 08/24/17 15:35 Potassium Chloride 100 ml @ 25 mls/hr UNSCH PRN IV 08/21/17 15:45 Potassium Chloride 100 ml @ 50 mls/hr Q2H PRN IV 08/21/17 15:45 Magnesium Sulfate 4 gm/Sodium Chloride 100 ml @ 50 mls/hr UNSCH PRN IV 08/21/17 15:45 (Mag-Ox) 800 mg UNSCH PRN PO 08/21/17 15:45 Magnesium Sulfate 2 gm/Sodium Chloride 100 ml @ 50 mls/hr UNSCH PRN IV 08/21/17 15:45 (K-Phos) 2,000 mg Q4H PRN PO 08/21/17 15:45 Sodium Phosphate 30 mmol/Sodium Chloride 250 ml @ 42 mls/hr UNSCH PRN IV 08/21/17 15:45 (K-Phos) 2,000 mg UNSCH PRN PO/TUBE 08/21/17 15:45 Potassium Phosphate 30 mmol/ Sodium Chloride 260 ml @ 42 mls/hr UNSCH PRN IV 08/21/17 15:45 Acetaminophen 100 ml @ 400 mls/hr Q6H PRN IV 08/21/17 16:30 (Toprol Xl) 100 mg BID PO 08/23/17 10:00 08/24/17 22:49 (Tums Chew) 500 mg Q4HR PRN CHEW 08/23/17 09:45 (Miralax) 17 gm DAILY PO 08/24/17 09:00 (Pepcid) 20 mg BID PO 08/24/17 21:00 08/24/17 22:49 Vital Signs / I&O Vital Signs Date Time Temp Pulse Resp B/P (MAP) Pulse Ox O2 Delivery O2 Flow Rate FiO2 08/25/17 08:20 98.4 85 18 119/72 (88) 98 08/25/17 04:00 Room Air 08/25/17 04:00 97.3 79 18 134/93 (107) 97 08/25/17 03:38 75 08/25/17 00:00 Room Air 08/24/17 23:46 98.1 84 20 159/92 (114) 97 08/24/17 23:45 85 08/24/17 20:00 99.1 89 18 134/82 (99) 94 08/24/17 20:00 Room Air 08/24/17 19:46 89 08/24/17 19:07 98 21 08/24/17 16:45 98.4 83 19 134/78 (96) 98 08/24/17 16:00 84 08/24/17 16:00 84 15 131/95 (107) 83 08/24/17 12:00 75 08/24/17 12:00 98.7 75 15 117/66 (83) 87 I/O 08/24/17 08/24/17 08/24/17 08/25/17 08/25/17 08/25/17 07:00 15:00 23:00 07:00 15:00 23:00 Intake Total 480 ml 240 ml 600 ml Output Total 3 ml Balance 480 ml 240 ml 597 ml Intake Oral 480 ml 240 ml 600 ml Output Urine Total 3 ml # Voids 2 1 # Bowel Movements 1 Physical Exam Alert, NAD Chest clear CV S1S2 RRR Tele: no VT no edema has sleep apnea eval planned as OP Assessment and Plan Problem List: (1) AICD discharge ICD Codes: Z45.02 - Encounter for adjustment and management of automatic implantable cardiac defibrillator (2) Prolonged QT interval syndrome ICD Codes: I45.81 - Long QT syndrome (3) Polymorphic ventricular tachycardia ICD Codes: I47.2 - Ventricular tachycardia Assessment and Plan OK to discharge OV Dr. Stein 1 week Nikolay Sheppard MD Aug 25, 2017 10:05
[2017-08-25] MEDS: METOPROLOL SUCCINATE 50 MG EXTENDED RELEASE TAB PO SCH (10:21)
[2017-08-25] MEDS: FAMOTIDINE 20 MG TAB PO SCH (10:21)
--- NOTE | 2017-08-25 12:16 | HHI.PR ---
Subjective Remarks Follow-up prolonged QT syndrome/AICD firing August 25, 2017-patient seen and examined, denies any heart palpitation, chest pain or shortness of breath. Mom by the bedside. She was cleared by cardiology for discharge. Objective Vitals Vital Signs Date Time Temp Pulse Resp B/P (MAP) Pulse Ox O2 Delivery O2 Flow Rate FiO2 08/25/17 08:20 98.4 85 18 119/72 (88) 98 08/25/17 08:00 85 08/25/17 08:00 96 Room Air 21 08/25/17 04:00 Room Air 08/25/17 04:00 97.3 79 18 134/93 (107) 97 08/25/17 03:38 75 08/25/17 00:00 Room Air 08/24/17 23:46 98.1 84 20 159/92 (114) 97 08/24/17 23:45 85 08/24/17 20:00 99.1 89 18 134/82 (99) 94 08/24/17 20:00 Room Air 08/24/17 19:46 89 08/24/17 19:07 98 21 08/24/17 16:45 98.4 83 19 134/78 (96) 98 08/24/17 16:00 84 08/24/17 16:00 84 15 131/95 (107) 83 I/O 08/24/17 08/24/17 08/24/17 08/25/17 08/25/17 08/25/17 07:00 15:00 23:00 07:00 15:00 23:00 Intake Total 480 ml 240 ml 600 ml Output Total 3 ml Balance 480 ml 240 ml 597 ml Intake Oral 480 ml 240 ml 600 ml Output Urine Total 3 ml # Voids 2 1 # Bowel Movements 1 Result Diagram: 08/22/17 0343 08/24/17 0456 Imaging Last Impressions Chest X-Ray 08/20/17 1110 Signed Impressions: CONCLUSION: Pacer in satisfactory position. No acute cardiopulmonary findings. Objective Remarks GENERAL: NAD SKIN: Warm and dry. HEAD: Normocephalic. EYES: No scleral icterus. No injection or drainage. NECK: Supple, trachea midline. No JVD or lymphadenopathy. CARDIOVASCULAR: Regular rate and rhythm without murmurs, gallops, or rubs. RESPIRATORY: Breath sounds equal bilaterally. No accessory muscle use. GASTROINTESTINAL: Abdomen soft, non-tender, nondistended. MUSCULOSKELETAL: No cyanosis, or edema. BACK: Nontender without obvious deformity. No CVA tenderness. A/P Problem List: (1) AICD discharge ICD Code: Z45.02 - Encounter for adjustment and management of automatic implantable cardiac defibrillator Assessment and Plan 27-year-old female with Prolonged QT syndrome AICD discharge -Patient was deemed not to be a candidate for cardiac ablation. -She had adjustment and management of automatic implantable cardiac defibrillator -Currently on Toprol XL per cardiology; she will need follow-up with [facility] Dr. Stein Obstructive sleep apnea - Patient can follow-up with sleep study as outpatient heartburn -improved w/ tums Continue miralax DVT prophylaxis-SCDs Wale Jimenez MD Aug 25, 2017 12:16
[2017-08-25] MEDS ORDERED: FAMO20TA2 PO (12:21)
[2017-08-25] MEDS ORDERED: METO1TAB9 PO (12:21)
--- NOTE | 2017-08-25 12:23 | HHI.DS ---
Discharge Summary Admission Date Aug 21, 2017 at 01:31 Discharge Date: Aug 25, 2017 Admitting Diagnosis ventricular fibrillation with aicd firing, hx of QT prolongation syn (1) AICD discharge ICD Code: Z45.02 - Encounter for adjustment and management of automatic implantable cardiac defibrillator Diagnosis: Principal Procedures None Brief History - From Admission Written by Erick Sargent, acting as scribe for Dr. Murrell on 08/20/17 at 18:10. 27-year-old female with past medical history of obstructive sleep apnea prolonged QT syndrome with AICD placement in 2014 followed by who presents to the ER after her AICD fired this morning while she was sleeping. Patient reports that she felt her heart racing and subsequently her AICD firing. She reports that the last time her AICD fired was on 02 August and also occurred the day before that, and the day before that. Patient with more frequent episodes of AICD discharge, states that she was planned for cardiac ablation by Dr. Stein the 26 of July. Patient with no complaints of chest pain , shortness of breath, dizziness or lightheadedness. She does report that earlier today when technicians were and to obtain x-rays she became somewhat pale and diaphoretic and states that this has not happened previously. She voices no acute concerns at this moment. CBC/BMP: 08/22/17 0343 08/24/17 0456 Significant Findings Laboratory Tests Test 08/24/17 04:56 Potassium Level 3.3 MEQ/L (3.5-5.1) Imaging Last Impressions Chest X-Ray 08/20/17 1110 Signed Impressions: CONCLUSION: Pacer in satisfactory position. No acute cardiopulmonary findings. PE at Discharge GENERAL: NAD SKIN: Warm and dry. HEAD: Normocephalic. EYES: No scleral icterus. No injection or drainage. NECK: Supple, trachea midline. No JVD or lymphadenopathy. CARDIOVASCULAR: Regular rate and rhythm without murmurs, gallops, or rubs. RESPIRATORY: Breath sounds equal bilaterally. No accessory muscle use. GASTROINTESTINAL: Abdomen soft, non-tender, nondistended. MUSCULOSKELETAL: No cyanosis, or edema. BACK: Nontender without obvious deformity. No CVA tenderness. Hospital Course While in hospital, patient was treated for: Prolonged QT syndrome AICD discharge -Patient was deemed not to be a candidate for cardiac ablation. -She had adjustment and management of automatic implantable cardiac defibrillator -She was treated with Toprol XL per cardiology Obstructive sleep apnea - Patient can follow-up with sleep study as outpatient heartburn -improved w/ tums She was treated with miralax DVT prophylaxis-SCDs Pt Condition on Discharge: Good Discharge Disposition: Discharge Home Discharge Time: <= 30 minutes Discharge Instructions DIET: Follow Instructions for: Heart Healthy Diet Activities you can perform: Regular-No Restrictions Follow up Referrals: Cardiology with Chayo Stein MD PCP Follow-up - 1 Week New Medications: Famotidine (Famotidine) 20 Mg Tab 20 MG PO BID for Prevent Stress Ulcers, #60 TAB Metoprolol Succinate ER 24 HR (Metoprolol Succinate ER 24 HR) 50 Mg Tab 100 MG PO BID for Regulate Heart Beat, #60 TAB 11 Refills Continued Medications: Ibuprofen (Ibuprofen) 800 Mg Tab 800 MG PO Q6HR PRN for PAIN, #30 TAB 0 Refills Discontinued Medications: Sotalol (Sorine) 80 Mg Tab 120 MG PO BID for Regulate Heart Beat for 30 Days, #90 TAB Wale Jimenez MD Aug 25, 2017 12:23
== END 2017-08-25 14:00 | disposition home or self-care (01) | DRG 314 ==
LOC: NEPC 10:38 → NEDA 17:50 → HCIS 20:05 → OBSVTOIN 08-21 01:31 → HIMW 08-21 01:40 → N04B 08-24 17:03
PROVIDERS: ADMIT Hospitalist; ATTEND Hospitalist
PROC: 5A09357 Assistance with Respiratory Ventilation, Less than 24 Consecutive Hours, Continuous Positive Airway Pressure (ICD-10-PCS; principal; 2017-08-21)
DX: Z45.02 Encounter for adjustment and management of automatic implantable cardiac defibrillator (principal); I49.01 Ventricular fibrillation; I47.2 Ventricular tachycardia; I45.81 Long QT syndrome; E66.9 Obesity, unspecified; G47.33 Obstructive sleep apnea (adult) (pediatric); R12 Heartburn; Z88.1 Allergy status to other antibiotic agents; Z68.33 Body mass index [BMI] 33.0-33.9, adult
CPT/HCPCS: 71046; 80048; 82550; 82552; 83735; 84100; 84132; 84484; 85025; 85610; 87641; 93005; 94150; J0282; J2060; J2270; J3475; J3480; J7030